=== PATIENT | female | born 1935 | race Caucasian/White ===

== ENCOUNTER 2017-07-16 10:43 | Outpatient (CLI) | payer MEDICARE, OTHER | END 2017-07-16 10:44 | disposition home or self-care (01) | LOC: BICMAMMO 10:43 | PROVIDERS: ATTEND Family Medicine | DX: Z12.31 Encounter for screening mammogram for malignant neoplasm of breast (principal) | CPT/HCPCS: 77063; 77067 ==

== ENCOUNTER 2017-07-16 15:43 | Outpatient (CLI) | payer MEDICARE, OTHER ==
[2017-07-16 16:48] LABS: Hemoglobin 12.9 g/dL (12.0-16.0); Mean Corpuscular HGB CONC 33.1 g/dL (32.0-36.0); Mean Corpuscular Hemoglobin 32.9 pg (27.0-31.0); Mean Corpuscular Volume 99.6 fl (81.0-99.0); Mean Platelet Volume 8.5 fL (7.4-10.4); Platelet Count 165 thou/uL (130-400); RBC Distribution Width 12.4 % (11.5-14.5); Red Blood Cell (RBC) Count 3.91 mill/uL (4.20-5.40); White Blood Cell (WBC) Count 4.7 thou/uL (4.8-10.8)
[2017-07-16 16:57] LABS: Prothrombin Time 13.6 SEC (12.0-14.7)
[2017-07-16 17:11] LABS: Anion Gap 9 mmol/L (10-20); BUN (Urea Nitrogen) 22 mg/dL (9.8-20.1); Calc. Creatinine Clearance 0 mL/min (70-130); Calcium 9.5 mg/dL (7.8-10.44); Carbon Dioxide 29 mmol/L (23-31); Chloride 99 mmol/L (98-107); Estimated GFR-MDRD 77; Glucose 81 mg/dL (83-110); Potassium 4.2 mmol/L (3.5-5.1); Sodium 133 mmol/L (136-145)
== END 2017-07-16 15:44 | disposition home or self-care (01) ==
LOC: LABBT 15:43
PROVIDERS: ATTEND Internal Medicine Cardiovascular Disease
DX: Z01.812 Encounter for preprocedural laboratory examination (principal); I35.8 Other nonrheumatic aortic valve disorders
CPT/HCPCS: 80048; 85027; 85610

== ENCOUNTER → 2017-07-22 | Day surgery (SDC) | payer MEDICARE, OTHER ==
[2017-07-16 15:48] VITALS: BMI 20.3
[~2017-07-22] MED LIST: Lidocaine 2% MPF 10 ML AMP (For Epidural Use) ONE; PROPOFOL 200 MG/20 ML VIAL ONE; PROPOFOL 40 ML ONE
--- NOTE | 2017-07-22 10:00 | ECHO ---
TRANSESOPHAGEAL ECHOCARDIOGRAM: DATE OF SERVICE: 07/22/17 REASON FOR STUDY: Aortic valve endocarditis. SUMMARY: Ms. Howe is a very pleasant 81-year-old white female who comes to the outpatient area for evaluation of aortic valve endocarditis seen on the transthoracic echo. The anesthesiology department provided s edation for the patient. Please see their notes for details. After adequate sedation was achieved, th e transesophageal probe was inserted into the mouth and into the esophagus without issues. Multiplana r views were then obtained. FINDINGS: Left ventricle is normal size with normal systolic function, EF estimated at about 50-55%. Left atrium is mildly dilated with a large left atrial appendage, widely patent. No mass or thrombus. Right atrium is normal size, no mass or thrombus. Right interatrial septum appears to be intact. Right ventricle is normal size with normal systolic function. Aortic valve is mildly sclerotic with three cusps. There is a very small flail mass measuring 0.6 cm on the ventricular side of the aortic valve consistent with the findings on the transthoracic echo. T here is also very mild aortic valve insufficiency, which is opposite to the side where the vegetation is and not related to this, or related to aortic valve sclerosis. This is in between the right and l eft coronary cusp. No evidence of aortic valve stenosis. Mitral valve has mild mitral annular calcification with moderate mitral regurgitation. No stenosis. Tricuspid valve is structurally normal with moderate TR. No stenosis. Pulmonary valve is structurally normal. There is moderate pulmonary insufficiency. There is Grade III/V atherosclerotic disease of the thoracic aorta. IMPRESSION: 1. Normal systolic function, EF of 50-55%. 2. Dilated left atrium. 3. Moderate MR with mitral annular calcification. 4. Moderate TR. 5. Moderate PI. 6. Mild aortic valve insufficiency not related to the small area of vegetations. There is a very sma ll flail mass on the ventricular side of the aortic valve consistent with a healed vegetation Given c linical scenario. Surveillance with transthoracic echo is recommended to make sure that the valve rem ains unharmed.
== END ==
LOC: SDC 06:27
PROVIDERS: ATTEND Internal Medicine Cardiovascular Disease
PROC: B24BZZ4 Ultrasonography of Heart with Aorta, Transesophageal (ICD-10-PCS; principal; 2017-07-22)
DX: I08.1 Rheumatic disorders of both mitral and tricuspid valves (principal); M19.90 Unspecified osteoarthritis, unspecified site; I42.9 Cardiomyopathy, unspecified; I70.0 Atherosclerosis of aorta; I10 Essential (primary) hypertension; E78.5 Hyperlipidemia, unspecified; E03.9 Hypothyroidism, unspecified; Z87.891 Personal history of nicotine dependence; Z91.018 Allergy to other foods; Z91.048 Other nonmedicinal substance allergy status; Z79.82 Long term (current) use of aspirin; Z79.899 Other long term (current) drug therapy
CPT/HCPCS: 93312; J2001; J2704

== ENCOUNTER 2019-08-22 23:24 | Emergency (ER) | payer MEDICARE, OTHER ==
[2019-08-22] MEDS ORDERED: Bacitracin 1 PK ONE (23:53)
--- NOTE | 2019-08-23 00:01 | CT ---
CT OF BRAIN PERFORMED WITHOUT CONTRAST ENHANCEMENT: History: Fell at home hitting right side of head. FINDINGS: There is generalized ventricular and sulcal prominence. There are chronic white matter changes presen t. Right sided scalp injury is noted. No intracerebral hemorrhage or extraaxial fluid collections. No skull fractures identified. Visualized sinuses appear clear. IMPRESSION: No acute intracranial abnormalities. POS: [facility]
[2019-08-23] MEDS ORDERED: Lidocaine 1% w/Epinephrine 1:100K 20 ML VIAL ONE (00:14)
--- NOTE | 2019-08-23 07:51 | RAD ---
Exam: XR Elbow Rt 4 View STANDARD HISTORY: Right elbow pain after a fall COMPARISON: None FINDINGS: . Tiny osseous densities are seen at the elbow joint likely related to mild degenerative changes. Ost eopenia is present. No acute fracture, dislocation, or other acute osseous abnormality is identified. IMPRESSION: No acute osseous abnormality is identified.
== END 2019-08-23 01:11 | disposition home or self-care (01) ==
LOC: ERS 23:24
DX: S06.9X1A Unspecified intracranial injury with loss of consciousness of 30 minutes or less, initial encounter (principal); S51.011A Laceration without foreign body of right elbow, initial encounter; S00.03XA Contusion of scalp, initial encounter; I10 Essential (primary) hypertension; Z79.899 Other long term (current) drug therapy; W01.0XXA Fall on same level from slipping, tripping and stumbling without subsequent striking against object, initial encounter
CPT/HCPCS: 70450

== ENCOUNTER 2019-08-23 12:07 | Observation (INO) | payer MEDICARE, OTHER ==
--- NOTE | 2019-08-23 12:49 | CT ---
Exam: Head CT without contrast HISTORY: Syncope COMPARISON: 08/22/2019 FINDINGS: Hemorrhage: No intraparenchymal hemorrhage or extra-axial hematoma. Brain parenchyma: Cortical joe-white matter differentiation is preserved. No mass effect or midline shift. Basilar cisterns are patent.Stable white matter hypodensities due to chronic small vessel ischemic change. Stable hyperdensity is on the left and right tentorium. Ventricular system: Ventricles and sulci are patent and symmetric. Calvarium: Intact. Sinuses and mastoid air cells: Adequate aeration. IMPRESSION: 1. No intracranial posttraumatic sequelae. 2. No significant interval change.
[2019-08-23 13:19] LABS: #Monocytes 0.9 thou/uL (0.11-0.59); #Neutrophils 5.4 thou/uL (1.40-6.50); %Basophils 0.4 % (0.0-1.0); %Eosinophils 0.4 % (0.0-10.0); %Lymphocytes 14.1 % (21.0-51.0); %Monocytes 12.4 % (0.0-10.0); %Neutrophils 72.8 % (42.0-75.0); Hemoglobin 11.4 g/dL (12.0-16.0); Mean Corpuscular HGB CONC 33.2 g/dL (32.0-36.0); Mean Corpuscular Hemoglobin 31.6 pg (27.0-31.0); Mean Corpuscular Volume 95.3 fL (78.0-98.0); Mean Platelet Volume 9.5 fL (7.4-10.4); Platelet Count 130 thou/uL (130-400); RBC Distribution Width 12.4 % (11.5-14.5); Red Blood Cell (RBC) Count 3.61 mill/uL (4.20-5.40); White Blood Cell (WBC) Count 7.4 thou/uL (4.8-10.8)
--- NOTE | 2019-08-23 13:22 | RAD ---
Exam: One view pelvis HISTORY: Syncope. Fall. Pain. FINDINGS: Limited evaluation of the bony pelvis due to overlying bowel gas and fecal material. Sacral ala cannot be evaluated. Sacroiliac joints are symmetric. Bony pelvis is intact. Symmetric hip joint spaces. Contour of both femoral heads are maintained. Symmetric obturator rings. Mild degenerat rosalinda change in the symphysis pubis. IMPRESSION: No fracture. Technical limitations as described above.
[2019-08-23 13:39] LABS: ALT (SGPT) 13 U/L (8-55); AST (SGOT) 27 U/L (5-34); Albumin 3.8 g/dL (3.4-4.8); Alkaline Phosphatase 31 U/L (40-110); Anion Gap 12 mmol/L (10-20); BUN (Urea Nitrogen) 26 mg/dL (9.8-20.1); Bilirubin, Total 0.6 mg/dL (0.2-1.2); Calc. Creatinine Clearance 0 mL/min (70-130); Calcium 8.5 mg/dL (7.8-10.44); Carbon Dioxide 24 mmol/L (23-31); Chloride 103 mmol/L (98-107); Estimated GFR-MDRD 79; Globulin 2.1 g/dL (2.4-3.5); Glucose 100 mg/dL (83-110); Potassium 4.5 mmol/L (3.5-5.1); Protein, Total 5.9 g/dL (6.0-8.3); Sodium 134 mmol/L (136-145)
[2019-08-23] MEDS ORDERED: Ibuprofen 800 MG TAB ONE (14:55)
[2019-08-23 15:03] LABS: Magnesium 1.9 mg/dL (1.6-2.6)
--- NOTE | 2019-08-23 15:36 | PDOC.EVN ---
Event Note - Event Note Event Note: Patient is refusing IV access
[2019-08-23 17:47] LABS: Troponin I 0.021 ng/mL (< 0.028)
[2019-08-23] MEDS ORDERED: Nitroglycerin 0.4 MG TAB (25 Tab Bottle) PO PRN (17:59)
[2019-08-23] MEDS ORDERED: Senokot S 8.6-50 MG TAB PO PRN (18:01)
[2019-08-23] MEDS ORDERED: Ondansetron PF 4 MG/2 ML Vial IVP PRN (18:01)
[2019-08-23] MEDS ORDERED: Bisacodyl 10 MG SUPP PR PRN (18:01)
[2019-08-23] MEDS ORDERED: Ondansetron ODT 4 MG TAB PO PRN (18:01)
[2019-08-23] MEDS ORDERED: Calcium Carbonate 500 MG ChewTAB PO PRN (18:01)
[2019-08-23] MEDS ORDERED: Melatonin 3 MG TAB PO PRN (18:04)
[2019-08-23] MEDS ORDERED: Sodium Chloride 0.9% 1,000 ML IV SCH (18:15)
[2019-08-23] MEDS ORDERED: Artificial Tears 18 DROP/0.9 ML EA EYE PRN (18:32)
--- NOTE | 2019-08-23 19:18 | HP ---
PRIMARY CARE: Dr. Michele Sandoval. PRIMARY FURNACE CHARGING MACHINE OPERATOR: Dr. Chris. CHIEF COMPLAINT: Syncopal episode. HISTORY OF PRESENT ILLNESS: The patient is an 84-year-old female, with hypertension, presented to the emergency room with above complaints. History obtained from the patient. The patient was seen in the emergency room last night after an episode of fall. She fell in the bathroom, striking the right side of her head. She lost consciousness for 1 to 2 minutes. There was a laceration and a hematoma over the right forehead, which was sutured in the emergency room. A CT brain was negative for intracranial bleed. She was discharged home in a stable condition. The patient returned to the emergency room after a near syncopal episode this morning. This time, she did not hit her head. She is feeling lightheaded and dizzy, especially on standing up. She has been feeling generally weak and fatigued. No chest pain, palpitations, fever, chills, sick contacts, or travel reported. The patient denies any orthopnea or paroxysmal nocturnal dyspnea. In the emergency room, her initial vital signs showed temperature of 98, with respirations of 17, pulse of 72, with a blood pressure of 126/57, O2 saturation 95% on room air. Her troponins were negative. She refused IV access in the emergency room. PAST MEDICAL HISTORY: 1. Hypertension. 2. Hyperlipidemia. 3. Hypothyroidism. PAST SURGICAL HISTORY: 1. Breast implants. 2. Bunion surgery. 3. Bilateral knee replacements. 4. Foot surgery. ALLERGIES: THE PATIENT DENIES ANY DRUG ALLERGIES. CURRENT HOME MEDICATIONS: 1. Aspirin 81 mg daily. 2. Plavix 75 mg at bedtime. 3. Zetia 10 mg at bedtime. 4. Lisinopril 2.5 mg at bedtime. 5. Melatonin as needed. 6. Toprol-XL 25 mg daily. 7. Multivitamin one tablet daily. 8. Niacin 500 mg daily. 9. Zocor 40 mg at bedtime. 10. [place] Thyroid 90 mg daily. 11. Vitamin E 400 units daily. SOCIAL HISTORY: The patient is a former smoker. Denies any current use of alcohol or drug use. Her surrogate decision maker is one of her daughters. She is full code. The patient ambulates with the help of a cane. FAMILY HISTORY: Negative for premature coronary artery disease. REVIEW OF SYSTEMS: All other review of systems was reviewed and was found negative. The patient is complaining of right groin pain that has been ongoing for last 12 hours after the fall. PHYSICAL EXAMINATION: VITAL SIGNS: As discussed above. GENERAL: An 84-year-old female, in no apparent distress. Continues to feel lightheaded and dizzy. HEENT: There is dressing over the right scalp hematoma/laceration. No oral lesion. Pupils were reacting to light. NECK: Supple. No JVD. No carotid bruit. LUNGS: Clear to auscultation bilaterally. No wheezing, rales, or rhonchi. HEART: S1 and S2 present. Regular rate and rhythm. No rubs or gallops. ABDOMEN: Soft, nontender. Bowel sounds present. No rebound or guarding. EXTREMITIES: No edema or calf tenderness. NEUROLOGIC: Grossly nonfocal. Moves all 4 extremities. PSYCHIATRIC: Alert, awake, and oriented x3. SKIN: Warm and dry. LYMPH NODE: No palpable lymph nodes in the neck. PERIPHERAL VASCULAR: Radial pulses palpable bilaterally. MUSCULOSKELETAL: No joint swelling or tenderness. LABORATORY FINDINGS: CBC showed WBC 7.4, with hemoglobin 11.4, hematocrit 34.5, platelets of 130. Chemistry showed sodium 134, potassium 4.5, chloride 103, bicarb 24, BUN 26, creatinine 0.71. Troponin was negative. Magnesium and phosphorus are in normal range. EKG by my review showed sinus rhythm with nonspecific ST-T wave changes in the lateral lead with left axis deviation. Corrected QT interval was 470 milliseconds. Pelvis x-ray was negative for acute fractures or dislocation. CT scan of the brain by my review was negative for infiltrate. IMPRESSION: 1. Generalized weakness with syncope. 2. Fall with scalp hematoma/laceration. 3. Hypertension. 4. Hyperlipidemia. 5. Hyponatremia. 6. Chronic anemia, suspected due to nutritional deficiency. 7. Chronic kidney disease, stage 2. 8. Moderate mitral regurgitation. 9. Abnormal EKG. PLAN: The patient will be monitored on the telemetry unit. Serial troponins will be obtained. We will continue her home medications. We will also start frequent neuro checks. We will obtain echo and carotid Doppler in a.m. Repeat labs including folic acid, vitamin B12, TSH, and cortisol in a.m. Consult Cardiology, Dr. Chris for possible cardiogenic syncope. We will consult Physical Therapy as well. Consult rn case manager hospice for either home health care or inpatient rehab evaluation. Job ID: [id number]
[2019-08-23 19:52] LABS: Troponin I Less than 0.010 ng/mL (< 0.028)
[2019-08-23] MEDS ORDERED: Lisinopril 2.5 MG TAB PO SCH (21:00)
[2019-08-23] MEDS ORDERED: Ezetimibe 10 MG TAB PO SCH (21:00)
[2019-08-23] MEDS ORDERED: Clopidogrel Bisulfate 75 MG TAB PO SCH (21:00)
[2019-08-23] MEDS ORDERED: Atorvastatin Calcium 20 MG TAB PO SCH (21:00)
[2019-08-23] MEDS: cycloSPORINE 0.05% Ophthalmic Droperette EA EYE SCH (21:31)
[2019-08-23] MEDS: Famotidine 20 MG TAB PO SCH (21:31)
[2019-08-23] MEDS: Acetaminophen 325 MG TAB PO PRN (23:27)
[2019-08-24 04:18] LABS: #Eosinphils 0.1 thou/uL (0.0-0.7); #Lymphocytes 1.4 thou/uL (1.20-3.40); #Monocytes 0.7 thou/uL (0.11-0.59); #Neutrophils 3.1 thou/uL (1.40-6.50); %Basophils 0.6 % (0.0-1.0); %Lymphocytes 25.9 % (21.0-51.0); %Monocytes 12.9 % (0.0-10.0); %Neutrophils 58.6 % (42.0-75.0); Hemoglobin 11.4 g/dL (12.0-16.0); Mean Corpuscular HGB CONC 34.3 g/dL (32.0-36.0); Mean Corpuscular Hemoglobin 32.6 pg (27.0-31.0); Mean Corpuscular Volume 95.3 fL (78.0-98.0); Mean Platelet Volume 8.8 fL (7.4-10.4); Platelet Count 123 thou/uL (130-400); RBC Distribution Width 12.4 % (11.5-14.5); Red Blood Cell (RBC) Count 3.49 mill/uL (4.20-5.40); White Blood Cell (WBC) Count 5.3 thou/uL (4.8-10.8)
[2019-08-24 04:35] LABS: Anion Gap 10 mmol/L (10-20); BUN (Urea Nitrogen) 20 mg/dL (9.8-20.1); Calc. Creatinine Clearance 55 mL/min (70-130); Calcium 8.7 mg/dL (7.8-10.44); Carbon Dioxide 26 mmol/L (23-31); Chloride 102 mmol/L (98-107); Estimated GFR-MDRD 81; Glucose 84 mg/dL (83-110); Potassium 4.7 mmol/L (3.5-5.1); Sodium 133 mmol/L (136-145)
[2019-08-24 07:01] LABS: Thyroid Stimulating Hormone 0.8794 uIU/mL (0.35-4.94)
[2019-08-24] MEDS ORDERED: Multivit, Therapeutic 1 TAB PO SCH (09:00)
[2019-08-24] MEDS ORDERED: Aspirin 81 mg Enteric Coated Tablet PO SCH (09:00)
[2019-08-24] MEDS ORDERED: Ascorbic Acid 500 mg Chewable Tablet PO SCH (09:00)
--- NOTE | 2019-08-24 09:05 | ULT ---
CAROTID ULTRASOUND: DATE: 08/24/2019 COMPARISON: CTA neck dated 07/11/2015. HISTORY: Syncope. TECHNIQUE: Multiplanar Jorge scale and color Doppler images were obtained in a carotid ultrasound. Spectral marcella sis of the Doppler waveforms were performed. FINDINGS: A small amount of plaque is seen surrounding both carotid bifurcations, right greater than left. The Doppler waveforms are normal bilaterally. Peak systolic velocity in the right ICA is 120 cm/second. Peak systolic velocity in the right CCA is 111 cm/second. The right ICA/CCA ratio is 1.1. Peak systolic velocity in the left ICA is 170 cm/second. Peak systolic velocity in the left CCA is 11 2 cm/second. The left ICA/CCA ratio is 1.5. Right vertebral artery not seen. Left vertebral artery demonstrates antegrade flow without focal stenosis. IMPRESSION: Moderate stenosis of 50-69% per velocity criteria in the left internal carotid artery. POS: [facility]
[2019-08-24] MEDS: Acetaminophen 325 MG TAB PO PRN (10:18)
[2019-08-24] MEDS: cycloSPORINE 0.05% Ophthalmic Droperette EA EYE SCH (10:18)
[2019-08-24] MEDS: Famotidine 20 MG TAB PO SCH (10:19)
[2019-08-24 12:26] VITALS: BMI 19.3
--- NOTE | 2019-08-24 13:44 | CON ---
DATE OF CONSULTATION: 08/24/2019 REASON FOR CONSULTATION: Syncope. HISTORY OF PRESENT ILLNESS: Ms. Howe is a very pleasant 84-year-old white female, very known to myself, who comes to the hospital for syncopal spell. About 2 to 3 days ago, she tripped and fell. She came to the ER for this. She was evaluated and sent home as all the testing was normal. She was at home yesterday and she stood up, walked to the bathroom, felt lightheaded and then she woke up on the floor. She had hit her head on the way down. She was seen in the ER. CT of the brain was unremarkable. Carotid ultrasound showed moderate disease on the left internal carotid artery. She was still positive. Her blood pressure went from 167 sitting down, to standing up it was 106. She dropped over 40 to 50 points. She was given fluids and Cardiology has been consulted for this. On my evaluation, Ms. Howe tells me that she has been feeling very well recently. She remembers tripping and falling that was not syncope, but the 2nd time was syncope, she felt lightheaded and woke up on the floor. She denies any chest pain, tightness, pressure. No shortness of breath. PAST MEDICAL HISTORY: 1. Hypertension. 2. Hyperlipidemia. 3. Hypothyroidism. 4. Mild aortic insufficiency with healed vegetation on the aortic valve. SURGICAL HISTORY: 1. Breast implants. 2. Bunion surgery. 3. Bilateral knee replacement. 4. Foot surgery. ALLERGIES: NO KNOWN DRUG ALLERGIES. OUTPATIENT MEDICATIONS: 1. Aspirin 81 a day. 2. Plavix 75 mg a day. 3. Zetia 10 mg a day. 4. Lisinopril 2.5 a day. 5. Melatonin p.r.n. 6. Toprol-XL 25 mg a day. 7. Multivitamin daily. 8. Niacin 500 mg a day. 9. Zocor 40 mg a day. 10. [place] Thyroid 90 mg a day. 11. Vitamin E 400 units a day. SOCIAL HISTORY: Former smoker. No alcohol or drugs. FAMILY HISTORY: No early coronary artery disease. REVIEW OF SYSTEMS: A 12-point review of systems was done and was all negative unless stated in the history of present illness. PHYSICAL EXAMINATION: VITAL SIGNS: Temperature 98.3, pulse 59, respiratory rate 13, satting 96% on room air, blood pressure sitting down 169/63, standing up 106/57. GENERAL: Awake, alert, and oriented x3, in no distress. HEENT: Bruising on her right scalp. NECK: Supple. LUNGS: Clear. CARDIOVASCULAR: S1, S2. No S3 or S4. No murmurs. ABDOMEN: Soft. Positive bowel sounds. EXTREMITIES: No edema. SKIN: Warm and dry. LABORATORY DATA: Laboratory work was reviewed. White count of 7, hemoglobin 11, hematocrit of 34, platelet count of a 130. Chemistries were unremarkable except for a sodium of 133. Troponin was negative x3. Folate was normal. B12 was normal. TSH and cortisol were normal. EKG was unremarkable. Echocardiogram was reviewed and showed an EF of 50% to 55%, grade 1 to 3 diastolic dysfunction. There is mild to moderate MR. Aortic valve is sclerotic with mild AI and moderate TR. Mild PI. ASSESSMENT: 1. Syncope. Likely orthostatic in nature. 2. Mild aortic insufficiency. 3. Normal LV function. PLAN: 1. Maintain well hydration. 2. We will stop lisinopril and metoprolol at this time. 3. We will follow up in the office in 2 weeks with blood pressure readings. 4. Should be able to be discharged home later today. Thank you for letting us to participate in the care of your patient. We will sign off. Please call with any questions. Job ID: [id number]
[2019-08-24 17:49] VITALS: BP 129/63; TEMP 97.9
--- NOTE | 2019-08-24 20:01 | DIS ---
DATE OF ADMISSION: 08/23/2019 DATE OF DISCHARGE: 08/24/2019 DISCHARGE DISPOSITION: Home. FOLLOWUP: 1. Follow up with primary care physician, Dr. Michele Sandoval in 1 week. 2. Follow up with Cardiology, Dr. Chris as scheduled. 3. Fall precaution was emphasized. The patient was advised to monitor blood pressure on a daily basis and to maintain a log. DISCHARGE MEDICATIONS: Antihypertensives were discontinued. All other home medications were left unchanged. SIGNIFICANT LABORATORY DATA: Cortisol level was 9.5. Vitamin B12 of 589, folic acid 28. TSH was 0.87. Creatinine was 0.69, sodium 133, BUN on admission was 26, at discharge was 20. Platelets of 123. Repeat CBC and BMP after 1 week are recommended. Primary care physician advised to follow. BRIEF HOSPITAL COURSE: The patient is an 84-year-old female with hypertension, presented to the emergency room after a syncopal episode. She was evaluated in the emergency room on the previous night after an episode of fall causing the scalp hematoma with laceration. Please refer to the history and physical for further details. The patient was admitted to the hospital with generalized weakness with syncope. Her workup was positive for orthostatic hypotension. Antihypertensives were discontinued. Her blood pressure stabilized after discontinuation. An echocardiogram was obtained that showed ejection fraction of 50% to 55% with grade 1 of 3 diastolic dysfunction, mild to moderate mitral regurgitation, moderate tricuspid regurgitation. Carotid Doppler showed moderate 50% to 69% stenosis of the left internal carotid artery. The patient was evaluated by Cardiology, Dr. Chris. The patient was advised to maintain hydration adequately. Lisinopril and metoprolol have been discontinued. She was advised to follow up with Dr. Chris in 2 weeks with blood pressure readings. She will also benefit from a CT angiogram of the neck as an outpatient. Please note that the patient declined IV access this admission. FINAL DIAGNOSES: 1. Generalized weakness with syncope. 2. Fall with scalp hematoma/laceration prior to admission. 3. Hypertension. 4. Hyperlipidemia. 5. Hyponatremia. 6. Moderate mitral regurgitation. 7. Chronic kidney disease, stage 2. 8. Chronic diastolic heart failure. 9. Abnormal EKG. 10. Chronic anemia, suspected due to nutritional deficiency. 11. Moderate stenosis of the left internal carotid artery. 12. Thrombocytopenia. The patient understands the above plan of care. Job ID: [id number]
--- NOTE | 2019-08-25 13:34 | EKG ---
Test Reason : Blood Pressure : / mmHG Vent. Rate : 063 BPM Atrial Rate : 063 BPM P-R Int : 160 ms QRS Dur : 108 ms QT Int : 460 ms P-R-T Axes : 000 -24 079 degrees QTc Int : 470 ms Sinus rhythm with Premature atrial complexes Prolonged QT Abnormal ECG Confirmed by JAVIER MERCADO ([id number]), assistant production editor ROSLYN LERNER ([id number]) on 08/25/2019 1:34:14 PM Referred By: Confirmed By:JAVIER MERCADO
== END 2019-08-24 16:49 | disposition home or self-care (01) ==
LOC: ERS 12:07 → 2NO 17:17
PROVIDERS: ADMIT Internal Medicine; ATTEND Internal Medicine
DX: R55 Syncope and collapse (principal); R53.1 Weakness; I13.0 Hypertensive heart and chronic kidney disease with heart failure and stage 1 through stage 4 chronic kidney disease, or unspecified chronic kidney disease; N18.2 Chronic kidney disease, stage 2 (mild); I50.32 Chronic diastolic (congestive) heart failure; E78.5 Hyperlipidemia, unspecified; E87.1 Hypo-osmolality and hyponatremia; I34.0 Nonrheumatic mitral (valve) insufficiency; R94.31 Abnormal electrocardiogram [ECG] [EKG]; D64.9 Anemia, unspecified; I65.22 Occlusion and stenosis of left carotid artery; D69.6 Thrombocytopenia, unspecified; I35.1 Nonrheumatic aortic (valve) insufficiency; E03.9 Hypothyroidism, unspecified; E78.00 Pure hypercholesterolemia, unspecified; Z87.891 Personal history of nicotine dependence; Z79.02 Long term (current) use of antithrombotics/antiplatelets; Z79.82 Long term (current) use of aspirin; Z79.899 Other long term (current) drug therapy; Z91.018 Allergy to other foods; Z91.048 Other nonmedicinal substance allergy status; Z96.653 Presence of artificial knee joint, bilateral; W01.0XXA Fall on same level from slipping, tripping and stumbling without subsequent striking against object, initial encounter
CPT/HCPCS: 70450 ×2; 72170; 73080; 80048; 80053; 82533; 82607; 82746; 83735; 84100; 84443; 84484 ×2; 85025 ×2; 93005; 93306; 93880; 97116; 97139 ×3; 99285; G0378 ×3; 12011; 36415

== ENCOUNTER 2019-09-21 06:36 | Outpatient (CLI) | payer MEDICARE, OTHER ==
[2019-09-21 12:59] LABS: Hemoglobin 13.7 g/dL (12.0-16.0); Mean Corpuscular HGB CONC 32.1 g/dL (32.0-36.0); Mean Corpuscular Hemoglobin 31.8 pg (27.0-31.0); Mean Platelet Volume 8.8 fL (7.4-10.4); Platelet Count 186 thou/uL (130-400); Red Blood Cell (RBC) Count 4.31 mill/uL (4.20-5.40); White Blood Cell (WBC) Count 6.5 thou/uL (4.8-10.8)
[2019-09-21 13:05] LABS: INR-International Normal Ratio 1.1; PTT 34.9 SEC (22.9-36.1); Prothrombin Time 13.7 SEC (12.0-14.7)
[2019-09-21 13:16] LABS: Anion Gap 13 mmol/L (10-20); BUN (Urea Nitrogen) 24 mg/dL (9.8-20.1); Calc. Creatinine Clearance 0 mL/min (70-130); Calcium 9.4 mg/dL (7.8-10.44); Carbon Dioxide 27 mmol/L (23-31); Chloride 102 mmol/L (98-107); Estimated GFR-MDRD 80; Glucose 96 mg/dL (83-110); Potassium 4.5 mmol/L (3.5-5.1); Sodium 137 mmol/L (136-145)
[2019-09-21 17:22] LABS: SARS-CoV-2 MS2 Positive; SARS-CoV-2 N Gene Negative; SARS-CoV-2 S Gene Negative; SARS-CoV-2 orf1ab Negative
--- NOTE | 2019-09-26 15:56 | EKG ---
Test Reason : Blood Pressure : / mmHG Vent. Rate : 083 BPM Atrial Rate : 326 BPM P-R Int : 000 ms QRS Dur : 120 ms QT Int : 380 ms P-R-T Axes : 000 019 -32 degrees QTc Int : 446 ms Atrial fibrillation with premature ventricular or aberrantly conducted complexes Septal infarct , age undetermined T wave abnormality, consider inferior ischemia or digitalis effect Abnormal ECG When compared with ECG of 23-AUG-2019 12:18, Atrial fibrillation has replaced Sinus rhythm Non-specific change in ST segment in Inferior leads T wave inversion now evident in Inferior leads Confirmed by KETTY PERALTA (2) on 09/26/2019 3:56:06 PM Referred By: JESSE Confirmed By:KETTY PERALTA
== END 2019-09-21 06:37 | disposition home or self-care (01) ==
LOC: LABBT 06:36
PROVIDERS: ATTEND Internal Medicine Cardiovascular Disease
DX: Z01.818 Encounter for other preprocedural examination (principal); Z11.59 Encounter for screening for other viral diseases; Z51.81 Encounter for therapeutic drug level monitoring; I47.2 Ventricular tachycardia; R55 Syncope and collapse; Z79.01 Long term (current) use of anticoagulants
CPT/HCPCS: 80048; 85027; 85610; 85730; 87635; 93005; 93010; U0003

== ENCOUNTER 2019-09-22 06:20 | Inpatient (IN) | payer MEDICARE, OTHER ==
[2019-09-22] MEDS ORDERED: Famotidine/PF 20 mg/2ml Vial ONE (06:57)
[2019-09-22] MEDS ORDERED: Fentanyl 100 MCG/2 ML VIAL ONE (06:57)
[2019-09-22] MEDS ORDERED: Gentamicin 80 MG/2 ML VIAL ONE (08:20)
[2019-09-22] MEDS ORDERED: Iopamidol 370 76% 50 ML VIAL FS ONE (09:00)
[2019-09-22] MEDS ORDERED: PROPOFOL 20 ML ONE (09:22)
[2019-09-22] MEDS ORDERED: Lidocaine 1% PF 5 ML VIAL ONE (09:26)
[2019-09-22] MEDS ORDERED: Ondansetron PF 4 MG/2 ML Vial ONE (09:26)
[2019-09-22] MEDS ORDERED: PROPOFOL 200 MG/20 ML VIAL ONE (09:26)
[2019-09-22] MEDS ORDERED: PHENYLEPHRINE-NS 100 MCG/ML 10 ML SYRINGE ONE (09:26)
[2019-09-22] MEDS ORDERED: EPHEDRINE 25 MG/5 ML SYRINGE ONE (09:26)
[2019-09-22] MEDS ORDERED: Ondansetron HCl/PF 4 MG/2 ML Vial IVP PRN (10:33)
[2019-09-22] MEDS ORDERED: Acetaminophen/Codeine 30-300mg Tablet PO PRN ×2 (12:15)
[2019-09-22] MEDS ORDERED: Sotalol HCl 80 MG TAB PO SCH (12:30)
--- NOTE | 2019-09-22 13:26 | RAD ---
PORTABLE CHEST ONE VIEW: 09/22/19 at 11:59 a.m. HISTORY: AICD pacer placement. FINDINGS/IMPRESSION: The heart size is normal. The aorta is tortuous. A left sided pacemaker device is present with bipola r leads in the right atrium and the right ventricle. Lungs are expanded without lobar consolidation, pneumothoraces, or pleural effusions. POS: [facility]
[2019-09-22] MEDS: CEFAZOLIN 2 GM in Premix Bag 1 BAG IVPB SCH ×2 (15:44→23:14)
[2019-09-22 16:00] VITALS: BMI 19.7
[2019-09-22] MEDS: Acetaminophen 325 MG TAB PO PRN (17:09)
--- NOTE | 2019-09-22 17:54 | OP ---
DATE OF PROCEDURE: 09/22/2019 PROCEDURE PERFORMED: Electrophysiology study. REFERRING PHYSICIAN: Isma Chris MD REASON FOR PROCEDURE: Ms. Howe is an 84-year-old woman, who has history of recurrent syncopal spells and falls. She has underwent an event monitor demonstrating wide-complex tachycardia runs as well as frequent atrial fibrillation, which were sustained up to 3 minutes in duration. She also has mild reduced LVEF about 50% by an echo and by cath as well, minimal plaquing on the coronary arteries by left heart catheterization in August 2019. She is here for EP study. DESCRIPTION OF PROCEDURE: The patient received deep sedation by Anesthesia specialist. After adequate level of sedation achieved, the right femoral venous area was prepped, draped, and anesthetized using subcutaneous lidocaine under ultrasound guidance. The right femoral vein was cannulated x1 and 6-[place] short sheath was introduced. Through this, an octapolar catheter was advanced to the right atrium, right ventricle, His bundle, and CS position. Pacing, mapping, and recording were performed at each location including pacing the left atrium via the CS. Following that, baseline measurements were obtained. Baseline rhythm was sinus rhythm with RR interval 939 milliseconds, LA 211 milliseconds, QRS 120 milliseconds, QT 433 milliseconds, HV interval was 41 milliseconds, AH 155 milliseconds. The sinus node recovery time was repeated, measured at about 946 milliseconds, which was shortened in the baseline tachycardia cycle length. Retrograde VA cycle length was 510 milliseconds. The AV nemesio ERP was 600/420 milliseconds. No dual AV nemesio physiology present. The burst atrial pacing in the atrium induced atrial fibrillation with varying cycle lengths, which eventually required cardioversion. Following that ventricular access to my testing was performed at 600/400 milliseconds. With 600/310/240, we were able to induce ventricular tachycardia with cycle length 230 milliseconds, which was right bundle, left axis in morphology. This ventricular tachycardia was hemodynamically unstable and sustained, therefore cardioversion were performed at 200 joule terminating the arrhythmia. Cardiac silhouette did not change throughout the study. CONCLUSIONS: 1. Inducible Ventricular tachycardia 2. Borderline sinus nemesio function, the resting bradycardia, but normal sinus node recovery time. 3. Adequate AV nemesio function. Normal HV interval. 4. Inducible atrial fibrillation/atypical atrial flutter is noted, sustained. 5. No evidence of accessory pathway or dual AV nemesio physiology present. PLAN: Due to induced ventricular tachycardia and syncopal spells, sustained VT on monitor, proceed with ICD implant. Consider antiarrhythmic agent for suppression of arrhythmia, sotalol versus amiodarone. Job ID: [id number] [facility]
[2019-09-22] MEDS: Sotalol HCl 80 MG TAB PO SCH (21:04)
[2019-09-22] MEDS: Atorvastatin Calcium 20 MG TAB PO SCH (21:04)
[2019-09-22] MEDS: Melatonin 3 MG TAB PO SCH (21:04)
[2019-09-23] MEDS: Cephalexin 250 MG CAP PO SCH ×3 (05:27→23:10)
[2019-09-23] MEDS ORDERED: KRILL OIL 1000 MG PO SCH (09:00)
[2019-09-23] MEDS ORDERED: BIOTIN 1 MG PO SCH (09:00)
[2019-09-23] MEDS ORDERED: CALCIUM MAGNESIUM PO SCH (09:00)
[2019-09-23] MEDS ORDERED: GLUCOSAMINE CHONDROITIN PO SCH (09:00)
[2019-09-23] MEDS: Multivit, Therapeutic 1 TAB PO SCH (09:14)
[2019-09-23] MEDS: Sotalol HCl 80 MG TAB PO SCH ×2 (09:14→21:09)
[2019-09-23] MEDS: Ascorbic Acid 500 mg Chewable Tablet PO SCH (09:14)
[2019-09-23] MEDS: Aspirin 81 mg Enteric Coated Tablet PO SCH (09:14)
[2019-09-23] MEDS: pyridOXINE 50 MG (B6) TAB PO SCH (09:14)
[2019-09-23] MEDS: Ezetimibe 10 MG TAB PO SCH (09:14)
[2019-09-23] MEDS: Stress 600 With Zinc 1 TAB PO SCH (09:19)
[2019-09-23] MEDS: Vitamin E 400 UNITS CAP PO SCH (09:20)
[2019-09-23] MEDS: Acetaminophen 325 MG TAB PO PRN (09:20)
[2019-09-23] MEDS: Ubidecarenone 50 MG CAP PO SCH (09:20)
--- NOTE | 2019-09-23 13:43 | PDOC.EP ---
- Subjective Date: 09/23/19 Time: 08:00 Interval History: This is a follow-up note following electrophysiology study and ICD implant on . Ms. Howe is feeling fatigued today. She reports some pain and bleeding at her ICD implant site. She has not had any repeat syncopal episodes and feels she is tolerating her sotalol without any issues so far. she voices no cardiac concerns or complaints today - Review of Systems Constitutional: reports: weakness. denies: chills, fever, malaise, sweats Respiratory: denies: cough, pleuritic pain, shortness of breath, SOB with excertion, wheezing Cardiology: denies: chest pain, edema, heart racing, light headedness, palpitations, passing out Gastrointestinal: denies: abdominal pain, constipation, nausea, vomitting Musculoskeletal: denies: unstable gait, falls, neck pain - Objective Allergies/Adverse Reactions: Allergies Allergy/AdvReac Type Severity Reaction Status Date / Time cranberry Allergy Verified 09/22/19 15:59 Adhesives Allergy Uncoded 09/21/19 11:30 Current Medications Acetaminophen (Tylenol) 650 mg PO Q4H PRN PRN Reason: Mild Pain (1-3) Last Admin: 09/23/19 09:20 Dose: 650 mg Acetaminophen/Codeine Phosphate (Tylenol #3) 1 tab PO Q4H PRN PRN Reason: Mild Pain (1-3) Acetaminophen/Codeine Phosphate (Tylenol #3) 2 tab PO Q4H PRN PRN Reason: Moderate Pain (4-6) Apixaban (Eliquis) 2.5 mg PO BID [facility] Ascorbic Acid (Vitamin C) 500 mg PO DAILY [facility] Last Admin: 09/23/19 09:14 Dose: 500 mg Aspirin (Ecotrin) 81 mg PO DAILY [facility] Last Admin: 09/23/19 09:14 Dose: 81 mg Atorvastatin Calcium (Lipitor) 20 mg PO HS [facility] Last Admin: 09/22/19 21:04 Dose: 20 mg Cephalexin (Keflex) 500 mg PO Q8HR [facility] Stop: 09/29/19 22:01 Last Admin: 09/23/19 13:08 Dose: 500 mg Coenzyme Q10 (Coenzyme Q10) 300 mg PO DAILY [facility] Last Admin: 09/23/19 09:20 Dose: 300 mg Ezetimibe (Zetia) 10 mg PO DAILY [facility] Last Admin: 09/23/19 09:14 Dose: 10 mg Melatonin (Melatonin) 6 mg PO HS [facility] Last Admin: 09/22/19 21:04 Dose: 6 mg Multivitamins (Theragran) 1 tab PO DAILY [facility] Last Admin: 09/23/19 09:14 Dose: 1 tab Multivitamins/Zinc (Stress 600 With Zinc) 1 tab PO DAILY [facility] Last Admin: 09/23/19 09:19 Dose: 1 tab Pyridoxine HCl (Vitamin B 6) 50 mg PO DAILY [facility] Last Admin: 09/23/19 09:14 Dose: 50 mg Sotalol HCl (Betapace) 120 mg PO BID [facility] Last Admin: 09/23/19 09:14 Dose: 120 mg Thyroid ([place] Thyroid) 90 mg PO DAILY [facility] Last Admin: 09/23/19 09:19 Dose: 90 mg Vitamin E (Vitamin E) 400 units PO DAILY [facility] Last Admin: 09/23/19 09:20 Dose: 400 units Vital Signs & Weight: Vital Signs Temp Pulse Pulse Pulse Resp BP BP 09/23/19 12:07 98.2 F 69 16 09/23/19 11:01 86 73 124/65 135/63 09/23/19 09:14 64 09/23/19 07:39 97.8 F 64 12 09/23/19 02:59 97.4 F L 60 14 BP BP Pulse Ox Pulse Ox Pulse Ox 09/23/19 12:07 120/56 L 97 09/23/19 11:01 96 97 09/23/19 09:14 09/23/19 07:39 122/57 L 97 09/23/19 02:59 115/57 L 92 L Weight 120 lb I/O: I/O 09/22/19 09/23/19 09/24/19 06:59 06:59 06:59 Intake Total 1270 Balance 1270 - Quality Measures Condition: Atrial Fibrillation/Flutter (hx or current) CV meds: Eliquis: Yes ( 2.5 mg b.i.d. to be resumed 09/24/2019) - Physical Exam General: alert & oriented x3, appears well, no apparent distress, speech clear, affect appropriate HEENT: mucus membranes moist, normocephaly, EOMI. negative: jaundice, pallor Neck: supple neck, midline trachea, no lymphadenopathy Cardiology: regular rate and rhythm, no murmur, PMI nondisplaced Lungs: clear to auscultation, normal breath sounds, no wheeze, rales, rhonchi Neurology: cranial nerve 2-12 intact, grossly intact, no lateralizing findings Abdomen: unremarkable, active bowel sounds, no pulsations/bruits Extremities: dry, strong pulses, warm Skin: groin sites stable, device site stable w/o swelling, bruising, drainage ( dried blood noted), left sided device, swelling (mild). negative: erosion, hematoma - Chadsvasc Risk factors Age >75: 2 Female: 1 Risk Score: 3 - EKG Interpretation EKG Method: Telemetry EKG shows: Sinus rhythm - Device Device: biventricular, defibrillator Device Result: Medtronic - Assessment/Plan Assessment/Plan: 1. history of syncope and collapse 2. inducible ventricular tachycardia during electrophysiology study 3. inducible atrial fibrillation during electrophysiology study - resume Eliquis tomorrow morning 4. elevated chads Vasc score indicating need for anticoagulation 5. Dual chamber ICD, Medtronic implanted 09/22/2019 - normal operation by device interrogation this morning - post implant chest x-ray is stable without evidence of pneumothorax - continue post implant Keflex for 1 week - LRL increased to 70 Ms. Shyam is admitted and being watched while being loaded on sotalol to suppress her atrial and ventricular arrhythmias. she does have some dried blood at her ICD implant site but no evidence of acute hematoma or complication. Edges are well approximated and dried bloody drainage is noted. Plan to resume anticoagulation tomorrow morning. Her lower rate limit on her ICD was increased to 70 beats per minute. She is experiencing some QTC prolongation with her sotalol loading. QTC is measuring at 581 milliseconds, baseline was 446msec. Reducing sotalol to 40 mg b.i.d. and continue with 12 lead EKGs 2-3 hours after every dose of sotalol. She will remain on telemetry monitoring for recurrence of the ventricular arrhythmias.
[2019-09-23] MEDS: Atorvastatin Calcium 20 MG TAB PO SCH (21:08)
[2019-09-23] MEDS: Melatonin 3 MG TAB PO SCH (21:09)
[2019-09-24 04:35] LABS: Hemoglobin 13.4 g/dL (12.0-16.0); Platelet Count 139 thou/uL (130-400)
[2019-09-24] MEDS: Cephalexin 250 MG CAP PO SCH ×2 (05:59→15:13)
[2019-09-24] MEDS ORDERED: Apixaban 2.5 MG TAB PO SCH (09:00)
[2019-09-24] MEDS: Ezetimibe 10 MG TAB PO SCH (09:10)
[2019-09-24] MEDS: Ubidecarenone 50 MG CAP PO SCH (09:10)
[2019-09-24] MEDS: Stress 600 With Zinc 1 TAB PO SCH (09:10)
[2019-09-24] MEDS: Acetaminophen 325 MG TAB PO PRN (09:10)
[2019-09-24] MEDS: Aspirin 81 mg Enteric Coated Tablet PO SCH (09:11)
[2019-09-24] MEDS: pyridOXINE 50 MG (B6) TAB PO SCH (09:11)
[2019-09-24] MEDS: Vitamin E 400 UNITS CAP PO SCH (09:11)
[2019-09-24] MEDS: Ascorbic Acid 500 mg Chewable Tablet PO SCH (09:13)
[2019-09-24] MEDS: Multivit, Therapeutic 1 TAB PO SCH (09:13)
[2019-09-24] MEDS: Sotalol HCl 80 MG TAB PO SCH (09:13)
[2019-09-24 15:31] VITALS: TEMP 97.9
[2019-09-24 17:23] VITALS: BP 135/62
--- NOTE | 2019-09-25 00:09 | DIS ---
DATE OF ADMISSION: 09/22/2019 DATE OF DISCHARGE: 09/24/2019 ADMITTING DIAGNOSES: 1. Sustained wide-complex tachycardia. 2. Paroxysmal atrial fibrillation on OAC. 3. Syncopal spells. 4. Cardiomyopathy with reduced LVEF in the 45% to 50% range with nonocclusive plaquing on the coronary angiogram. DISCHARGE DIAGNOSES: 1. Status post EP study demonstrating sustained ventricular tachycardia. 2. Atrial fibrillation, inducible. 3. Prolonged QT with sotalol, which was stopped. 4. S/P 2 Chamber MDT ICD implant 09/22/19 without complication. 5. Orthostatic Hypotension. HOSPITAL COURSE: Mrs. Howe came with elective EP study with findings as noted above. She had easily inducible atrial fibrillation, sustained ventricular tachycardia and hence she underwent a dual-chamber ICD implantation. She was started on sotalol at 120 mg twice a day, progressive QT prolongation noted, which did not resolve by reducing sotalol. Eventually, sotalol was stopped on discharge. She had no proarrhythmia, but QT prolongation in excess of 500 milliseconds. Her ICD function was adequate post implant day and she also healed up adequately. Eliquis 2.5 mg twice a day was resumed 2 days after the implant. No further atrial fibrillation noted during observation. On the day of discharge, orthostatic blood pressures were checked revealing lying blood pressure 126/58, standing blood pressure 86/51. Therefore, midodrine was added to the regimen. The patient will resume her beta-kae therapy. She is advised to be extremely careful with ambulation and return if further syncopal spells occur. Ten days follow up in our clinic. Planned for wound check. She is to take 5 more days of Keflex 500 q.8 hours. Should further atrial fibrillation or ventricular arrhythmias occur, she may still be considered for amiodarone or Multaq therapy. Job ID: [id number] MTDD
--- NOTE | 2019-09-26 16:06 | EKG ---
Test Reason : POST EP/AICD/PACERMA Blood Pressure : / mmHG Vent. Rate : 063 BPM Atrial Rate : 063 BPM P-R Int : 196 ms QRS Dur : 112 ms QT Int : 482 ms P-R-T Axes : 068 -26 035 degrees QTc Int : 493 ms Electronic atrial pacemaker Incomplete left bundle branch block Prolonged QT Abnormal ECG When compared with ECG of 21-SEP-2019 12:18, (Unconfirmed) Electronic atrial pacemaker has replaced Atrial fibrillation QRS axis Shifted left T wave inversion no longer evident in Inferior leads Confirmed by KETTY PERALTA (2) on 09/26/2019 4:05:50 PM Referred By: JESSE Confirmed By:KETTY PERALTA
--- NOTE | 2019-09-26 16:07 | EKG ---
Test Reason : POST MED Blood Pressure : / mmHG Vent. Rate : 060 BPM Atrial Rate : 060 BPM P-R Int : 250 ms QRS Dur : 114 ms QT Int : 482 ms P-R-T Axes : 000 -21 041 degrees QTc Int : 482 ms Electronic atrial pacemaker Incomplete left bundle branch block Borderline ECG When compared with ECG of 22-SEP-2019 11:27, (Unconfirmed) No significant change was found Confirmed by KETTY PERALTA (2) on 09/26/2019 4:07:42 PM Referred By: JESSE Confirmed By:KETTY PERALTA
--- NOTE | 2019-09-26 16:10 | EKG ---
Test Reason : Blood Pressure : / mmHG Vent. Rate : 060 BPM Atrial Rate : 060 BPM P-R Int : 000 ms QRS Dur : 110 ms QT Int : 534 ms P-R-T Axes : 022 -22 -29 degrees QTc Int : 534 ms Atrial-paced rhythm with prolonged AV conduction Nonspecific T wave abnormality Prolonged QT Abnormal ECG When compared with ECG of 22-SEP-2019 14:36, (Unconfirmed) Incomplete left bundle branch block is no longer Present T wave inversion now evident in Inferior leads T wave inversion now evident in Anterior leads QT has lengthened Confirmed by KETTY PERALTA (2) on 09/26/2019 4:10:04 PM Referred By: JESSE Confirmed By:KETTY PERALTA
--- NOTE | 2019-09-26 16:13 | EKG ---
Test Reason : 2HR POST MED Blood Pressure : / mmHG Vent. Rate : 070 BPM Atrial Rate : 070 BPM P-R Int : 000 ms QRS Dur : 118 ms QT Int : 538 ms P-R-T Axes : 063 -22 -80 degrees QTc Int : 581 ms Electronic atrial pacemaker Septal infarct , age undetermined Marked T wave abnormality, consider anterolateral ischemia Prolonged QT Abnormal ECG When compared with ECG of 22-SEP-2019 22:54, (Unconfirmed) Non-specific change in ST segment in Anterior leads T wave inversion more evident in Anterior leads Confirmed by KETTY PERALTA (2) on 09/26/2019 4:13:15 PM Referred By: JESSE Confirmed By:KETTY PERALTA
--- NOTE | 2019-09-26 16:30 | EKG ---
Test Reason : ROUTINE Blood Pressure : / mmHG Vent. Rate : 072 BPM Atrial Rate : 073 BPM P-R Int : 000 ms QRS Dur : 116 ms QT Int : 504 ms P-R-T Axes : 000 -21 -84 degrees QTc Int : 551 ms Electronic atrial pacemaker Incomplete right bundle branch block Septal infarct (cited on or before 23-SEP-2019) T wave abnormality, consider inferior ischemia T wave abnormality, consider anterolateral ischemia Prolonged QT Abnormal ECG When compared with ECG of 23-SEP-2019 10:55, (Unconfirmed) No significant change was found Confirmed by KETTY PERALTA (2) on 09/26/2019 4:30:25 PM Referred By: JESSE Confirmed By:KETTY PERALTA
--- NOTE | 2019-09-26 16:35 | EKG ---
Test Reason : 2 HRS POST MED Blood Pressure : / mmHG Vent. Rate : 071 BPM Atrial Rate : 071 BPM P-R Int : 234 ms QRS Dur : 120 ms QT Int : 508 ms P-R-T Axes : 000 -31 263 degrees QTc Int : 552 ms Electronic atrial pacemaker Left axis deviation Incomplete left bundle branch block Abnormal ECG When compared with ECG of 23-SEP-2019 23:01, (Unconfirmed) Incomplete left bundle branch block has replaced Incomplete right bundle branch block Criteria for Septal infarct are no longer Present Confirmed by KETTY PERALTA (2) on 09/26/2019 4:35:16 PM Referred By: JESSE Confirmed By:KETTY PERALTA
== END 2019-09-24 17:16 | disposition home or self-care (01) | DRG 227 ==
LOC: SDC 06:20 → 2NO 12:10
PROVIDERS: ADMIT Internal Medicine Cardiovascular Disease; ATTEND Internal Medicine Cardiovascular Disease
PROC: 0JH608Z Insertion of Defibrillator Generator into Chest Subcutaneous Tissue and Fascia, Open Approach (ICD-10-PCS; principal; 2019-09-22)
PROC: 02HK3KZ Insertion of Defibrillator Lead into Right Ventricle, Percutaneous Approach (ICD-10-PCS; 2019-09-22)
PROC: 02H63KZ Insertion of Defibrillator Lead into Right Atrium, Percutaneous Approach (ICD-10-PCS; 2019-09-22)
PROC: 4A023FZ Measurement of Cardiac Rhythm, Percutaneous Approach (ICD-10-PCS; 2019-09-22)
PROC: 4A0234Z Measurement of Cardiac Electrical Activity, Percutaneous Approach (ICD-10-PCS; 2019-09-22)
DX: I47.1 Supraventricular tachycardia (principal); I42.9 Cardiomyopathy, unspecified; I10 Essential (primary) hypertension; R78.5 Finding of other psychotropic drug in blood; I25.10 Atherosclerotic heart disease of native coronary artery without angina pectoris; Z20.828 Contact with and (suspected) exposure to other viral communicable diseases; I48.0 Paroxysmal atrial fibrillation; J30.2 Other seasonal allergic rhinitis; M19.90 Unspecified osteoarthritis, unspecified site; R94.31 Abnormal electrocardiogram [ECG] [EKG]; Z96.653 Presence of artificial knee joint, bilateral; E03.9 Hypothyroidism, unspecified; Z87.891 Personal history of nicotine dependence; Z91.018 Allergy to other foods; Z79.890 Hormone replacement therapy; Z79.899 Other long term (current) drug therapy
CPT/HCPCS: 33249; 36005; 71045; 75820; 76942; 80048; 82565; 85014; 85018; 85027; 85049; 85610; 85730; 87635; 92960; 93005; 93010; 93622; 93798; C1721; C1730; C1769; C1777; C1898; J0690; J1580; J1644; J2001; J2405; J2704; J3010; Q9967; S0028; U0003

== ENCOUNTER 2019-09-25 13:29 | Inpatient (IN) | payer MEDICARE, OTHER ==
[2019-09-25 14:08] LABS: #Eosinphils 0.1 thou/uL (0.0-0.7); #Lymphocytes 1.1 thou/uL (1.20-3.40); #Monocytes 0.9 thou/uL (0.11-0.59); #Neutrophils 6.6 thou/uL (1.40-6.50); %Basophils 0.2 % (0.0-1.0); %Eosinophils 0.7 % (0.0-10.0); %Lymphocytes 12.5 % (21.0-51.0); %Monocytes 10.4 % (0.0-10.0); %Neutrophils 76.1 % (42.0-75.0); Hemoglobin 14.1 g/dL (12.0-16.0); Mean Corpuscular HGB CONC 32.7 g/dL (32.0-36.0); Mean Corpuscular Hemoglobin 32.1 pg (27.0-31.0); Mean Corpuscular Volume 98.2 fL (78.0-98.0); Mean Platelet Volume 9.1 fL (7.4-10.4); Platelet Count 121 thou/uL (130-400); RBC Distribution Width 12.8 % (11.5-14.5); White Blood Cell (WBC) Count 8.7 thou/uL (4.8-10.8)
[2019-09-25 14:28] LABS: ALT (SGPT) 12 U/L (8-55); AST (SGOT) 31 U/L (5-34); Albumin 3.9 g/dL (3.4-4.8); Alkaline Phosphatase 51 U/L (40-110); Anion Gap 12 mmol/L (10-20); BUN (Urea Nitrogen) 20 mg/dL (9.8-20.1); Bilirubin, Total 0.6 mg/dL (0.2-1.2); Calc. Creatinine Clearance 0 mL/min (70-130); Calcium 9.1 mg/dL (7.8-10.44); Carbon Dioxide 28 mmol/L (23-31); Chloride 97 mmol/L (98-107); Estimated GFR-MDRD 72; Globulin 2.4 g/dL (2.4-3.5); Glucose 123 mg/dL (83-110); Potassium 4.7 mmol/L (3.5-5.1); Protein, Total 6.3 g/dL (6.0-8.3); Sodium 132 mmol/L (136-145)
--- NOTE | 2019-09-25 14:48 | RAD ---
EXAM: Portable chest PROVIDED CLINICAL HISTORY: Weakness COMPARISON: 09/22/2019 FINDINGS: Cardiac and mediastinal silhouette is within normal limits. Subtle nodular density overlies the right upper lung zone laterally. No lobar consolidation, pleural fluid or pneumothorax evident. Left subclavian cardiac pacing device is redemonstrated in similar position. IMPRESSION: Nodular density right upper lung zone. Correlate with concerns for pneumonia. Radiographic follow-up recommended.
--- NOTE | 2019-09-25 14:49 | RAD ---
EXAM: XR Pelvis AP STANDARD PROVIDED CLINICAL HISTORY: Right hip pain COMPARISON: 08/23/2019 FINDINGS: There is no evidence for fracture or other acute osseous abnormality. Alignment appears anatomic. Maricarmen nt spaces appear preserved. IMPRESSION: No evidence for an acute osseous abnormality. If there is persistent clinical concern, conservative m anagement and follow-up imaging advised.
[2019-09-25 14:51] LABS: CKMB 3.6 ng/mL (0-6.6)
[2019-09-25 17:00] LABS: Bilirubin Negative (Negative); Blood, Urine Negative (Negative); Clarity Clear (Clear); Glucose, Urine (Dipstick) Normal (Negative); Leukocyte Negative Leu/uL (Negative); Nitrite Negative (Negative); Protein, Urine (Dipstick) Negative (Neg-Trace); Urobilinogen Normal mg/dL (Less than 2)
[2019-09-25 17:34] LABS: Troponin I 0.083 ng/mL (< 0.028)
[2019-09-25] MEDS ORDERED: Acetaminophen 325 MG TAB PO PRN (17:58)
[2019-09-25] MEDS ORDERED: Ondansetron ODT 4 MG TAB PO PRN (17:58)
[2019-09-25] MEDS ORDERED: Ondansetron PF 4 MG/2 ML Vial IVP PRN (17:58)
[2019-09-25] MEDS: Sodium Chloride 0.9% 1,000 ML IV SCH (19:00)
[2019-09-25 19:18] VITALS: BMI 19.0
[2019-09-25 20:20] LABS: Troponin I 0.083 ng/mL (< 0.028)
[2019-09-25] MEDS ORDERED: Ezetimibe 10 MG TAB PO SCH (21:00)
[2019-09-25] MEDS ORDERED: Atorvastatin Calcium 20 MG TAB PO SCH (21:00)
[2019-09-25] MEDS: Famotidine 20 MG TAB PO SCH (21:12)
[2019-09-25] MEDS: Apixaban 2.5 MG TAB PO SCH (21:12)
[2019-09-25] MEDS: cycloSPORINE 0.05% Ophthalmic Droperette EA EYE SCH (21:12)
--- NOTE | 2019-09-25 21:37 | HP ---
PRIMARY CARE PHYSICIAN: Dr. Michele Sandoval. SENIOR TECHNOLOGIST: Dr. Chris. CHIEF COMPLAINT: "Feeling like I am going to pass out or going to fade away." HISTORY OF PRESENT ILLNESS: Ms. Howe is a very pleasant 84-year-old female, who has a history of multifocal atrial tachycardia as well as atrial fibrillation. She recently underwent a pacer defibrillator placed due to some wide-complex tachycardia as well. She was discharged yesterday and says that she was feeling fine when she left the hospital and then later that evening, she ate some pizza and ice cream as well as a pretzel. She says that she woke up at around 4 o'clock in the morning and normally she will ring a ayon when she gets up and then she says that before she got up, she felt like she was going to pass out or what she says she describes as fading away. She says she went back to sleep and woke up a little bit later that afternoon and still had that same sensation. She does admit that she has not drank much fluid in the past. She drank a protein drink and then also had about 8 ounces of water. She does admit to some nausea, but no chest pain, and as a result of her symptoms, she came to the ER for evaluation. In the ER, they did interrogate her pacemaker and found that she was having episodes of multifocal atrial tachycardia at around 4:00 a.m. when this happened and also later on in the afternoon. However, the heart rates were not very fast, anywhere from 70 to about 110 and she is being placed in observation for further evaluation. REVIEW OF SYSTEMS: All systems were reviewed and are negative except for that mentioned in the history of present illness. PAST MEDICAL HISTORY: Significant for orthostatic hypotension, hyperlipidemia, hypothyroidism, atrial tachycardia, and wide-complex tachycardia. PAST SURGICAL HISTORY: She had a cyst removed from her breast, bunion surgery, bilateral knee replacements, and foot surgery. She has had a pacer defibrillator placed. ALLERGIES: SHE SAYS SHE HAS AN INTOLERANCE TO HOSPITAL TAPE. SOCIAL HISTORY: She lives with family. She is a nonsmoker and nondrinker. CODE STATUS: Full code. FAMILY HISTORY: Significant for coronary artery disease. CURRENT MEDICATIONS: Include metoprolol-XL, [place] Thyroid 90 mg daily, Zocor 40 mg daily, Zetia 10 mg daily, and Eliquis 2.5 mg twice a day. PHYSICAL EXAMINATION: GENERAL: She is alert and oriented. She appears to be in no acute distress. She is well developed and well nourished. VITAL SIGNS: Blood pressure was 115/59, heart rate 90, respiratory rate of 20, temperature is 97.7, and O2 saturation is 98% on room air. HEENT: Pupils are equal, round, and reactive. Extraocular muscles are intact. Her sclerae are anicteric. Throat, no erythema, no exudates. NECK: No adenopathy. No bruits. LUNGS: Clear to auscultation. There is no wheezing, no rales, no rhonchi. CARDIOVASCULAR: She has a normal S1, S2. There is no S3 or S4, but she does have a grade 2/6 systolic murmur at the lower left sternal border. ABDOMEN: Soft, nontender, and nondistended. Positive for bowel sounds. No rebound. No guarding. EXTREMITIES: She has 1 to 2+ pitting edema as well as some chronic venous stasis changes. No joint effusions. NEUROLOGIC: The exam is grossly nonfocal. SKIN AND INTEGUMENT: Other than some bruising on the lower extremities as well as around her eyes and her face, there are no skin changes. LABORATORY RESULTS: White blood cell count is 8.7, hemoglobin 14.1, hematocrit is 43.2, and platelet count is 121. Sodium 132, potassium 4.7, chloride is 97, CO2 is 28, BUN of 20, creatinine 0.7, glucose is 123, and urinalysis is still pending. On her EKG, she had diffuse T-wave inversions in leads I, II, III as well as aVL and aVF and leads V1 through V6, this is by my reading. ASSESSMENT: 1. This is a pleasant 84-year-old female, who presents to the emergency room complaining of presyncope. It is unclear the etiology, although I suspect it could be related to orthostasis and volume depletion. However, she does have new T-wave inversions, the etiology of which is unclear. She will be monitored in the hospital. We will continue to trend her troponins and place her on gentle IV hydration. Check her orthostatic vital signs and consult EP for further recommendations. 2. Hypothyroidism. We will check her thyroid function tests including TSH and free T4. Continue [place] Thyroid. 3. We will continue her anticoagulation with Eliquis. Job ID: [id number]
[2019-09-26 05:03] LABS: Anion Gap 12 mmol/L (10-20); BUN (Urea Nitrogen) 14 mg/dL (9.8-20.1); Calc. Creatinine Clearance 61 mL/min (70-130); Calcium 8.4 mg/dL (7.8-10.44); Carbon Dioxide 26 mmol/L (23-31); Chloride 101 mmol/L (98-107); Estimated GFR-MDRD 89; Glucose 74 mg/dL (83-110); Potassium 4.1 mmol/L (3.5-5.1); Sodium 135 mmol/L (136-145)
[2019-09-26 05:17] LABS: Thyroid Stimulating Hormone 1.4437 uIU/mL (0.35-4.94)
[2019-09-26 05:24] LABS: Free T4 (Free Thyroxine) 0.78 ng/dL (0.70-1.48)
[2019-09-26 05:55] LABS: Band 1 % (5-11); Eosinophils 3 % (0-10); Hemoglobin 12.2 g/dL (12.0-16.0); Lymphocytes 36 % (21-51); MDiff Complete? YES; Mean Corpuscular HGB CONC 31.6 g/dL (32.0-36.0); Mean Platelet Volume 9.2 fL (7.4-10.4); Monocytes 19 % (0-10); Neutrophil 41 % (42-75); Platelet Count 106 thou/uL (130-400); Platelet Morphology Comment Appears Decreased; RBC Distribution Width 12.8 % (11.5-14.5); Red Blood Cell (RBC) Count 3.95 mill/uL (4.20-5.40); White Blood Cell (WBC) Count 5.4 thou/uL (4.8-10.8)
[2019-09-26] MEDS: Sodium Chloride 0.9% 1,000 ML IV SCH ×2 (06:53→23:05)
[2019-09-26] MEDS: Famotidine 20 MG TAB PO SCH ×2 (08:43→21:23)
[2019-09-26] MEDS: Apixaban 2.5 MG TAB PO SCH (08:44)
--- NOTE | 2019-09-26 09:22 | PDOC.HOSPP ---
- Subjective Encounter Date: 09/26/19 Encounter Time: : Subjective: Ms. Howe was seen today in follow-up of pre-syncope. She says she feels better today. No new complaints. She got up to go the the bathroom this AM, and did not have an episode like yesterday. - Objective Vital Signs & Weight: Vital Signs (12 hours) Temp Pulse Resp BP BP BP Pulse Ox 09/26/19 08:36 97.8 F 71 14 136/63 105/59 L 133/74 98 09/26/19 04:03 97.9 F 131/68 111/67 128/58 L Weight Weight 125 lb 6.4 oz I&O: 09/25/19 09/26/19 09/27/19 06:59 06:59 06:59 Intake Total 1080 Output Total 1100 Balance -20 Result Diagrams: 09/26/19 04:12 09/26/19 04:12 Hospitalist ROS - Medication Medications: Active Medications Generic Name Dose Route Start Last Admin Trade Name Yoanthan PRN Reason Stop Dose Admin Apixaban 2.5 mg 09/25/19 21:00 09/26/19 08:44 Eliquis PO 2.5 mg BID SAIDA Administration Atorvastatin Calcium 20 mg 09/25/19 21:00 09/25/19 21:12 Lipitor PO 20 mg HS SAIDA Administration Cyclosporine 0 ml 09/25/19 21:00 09/25/19 21:12 Restasis EA EYE 2 ml BID SAIDA Administration Ezetimibe 10 mg 09/25/19 21:00 09/25/19 21:12 Zetia PO 10 mg HS SAIDA Administration Famotidine 20 mg 09/25/19 21:00 09/26/19 08:43 Pepcid PO 20 mg BID SAIDA Administration Sodium Chloride 1,000 mls @ 70 mls/hr 09/25/19 17:58 09/26/19 06:53 Normal Saline 0.9% IV 1,000 mls .[id number] SAIDA Administration Sodium Chloride 10 ml 09/26/19 09:00 09/26/19 08:44 Flush - Normal Saline IVF 10 ml Q12HR SAIDA Administration Thyroid 90 mg 09/26/19 06:00 09/26/19 06:05 [place] Thyroid PO 90 mg 0600 SAIDA Administration - Exam Eye: PERRL, anicteric sclera Heart: RRR, no rubs, normal peripheral pulses, murmur present, II/IV Respiratory: CTAB, no wheezes Gastrointestinal: soft, non-tender, non-distended, normal bowel sounds, no palpable masses, no hepatomegaly Extremities: no cyanosis, no edema Hosp A/P (1) Pre-syncope Status: Acute (2) Atrial fibrillation Code(s): I48.91 - UNSPECIFIED ATRIAL FIBRILLATION Status: Acute (3) Orthostatic hypotension Code(s): I95.1 - ORTHOSTATIC HYPOTENSION Status: Acute - Plan * Pre-syncope- discussed with Dr. Barron. Her symptoms coincide with when she developed Atrial fibrillation. It may be that she does not tolerate AFIB well. It is his opinion that the T- wave inversions are in relation the the V- pacing * Awaiting Echo results * Orthostatic hypotension- this does not appear to be symptomatic * Deconditioning- Ms. Howe is disappointed in her condition. She says she had been walking everyday up until the beginning of August. She says that she feels herself getting weaker and weaker, and is concerned about this. She would like to have " all of this fixed" so that she can return to her previous level of functioning * Thyroid function is normal
[2019-09-26] MEDS: cycloSPORINE 0.05% Ophthalmic Droperette EA EYE SCH (09:27)
[2019-09-26] MEDS ORDERED: cycloSPORINE 0.05% Ophthalmic Droperette EA EYE PRN (18:07)
[2019-09-26] MEDS: SIMVASTATIN 40 MG PO SCH (21:24)
[2019-09-26] MEDS: EZETIMIBE 10 MG PO SCH (21:27)
[2019-09-26] MEDS: ELIQUIS 2.5 MG PO SCH (21:28)
[2019-09-26] MEDS: CEPHALEXIN 500 MG PO SCH (23:03)
[2019-09-27] MEDS: CEPHALEXIN 500 MG PO SCH ×3 (05:37→21:09)
[2019-09-27] MEDS: ELIQUIS 2.5 MG PO SCH ×2 (08:10→21:11)
[2019-09-27] MEDS: ASPIRIN ENTERIC COATED 81 MG PO SCH (08:10)
[2019-09-27] MEDS: Famotidine 20 MG TAB PO SCH ×2 (08:10→21:08)
[2019-09-27] MEDS: THYROID PO SCH (08:10)
--- NOTE | 2019-09-27 11:07 | PDOC.HOSPP ---
- Subjective Encounter Date: 09/27/19 Encounter Time: 11:06 Subjective: Ms. Howe was seen today in follow-up of rial fibrillation and pre-syncope. She notes feeling weak. No new complaints. - Objective Vital Signs & Weight: Vital Signs (12 hours) Temp Pulse Resp BP BP BP BP 09/27/19 07:13 112/59 L 93/58 L 101/55 L 09/27/19 07:12 98.1 F 68 16 101/55 L 09/27/19 03:56 141/70 H 124/63 163/68 H 09/27/19 03:49 97.6 F 85 16 163/68 H Pulse Ox 09/27/19 07:13 09/27/19 07:12 95 09/27/19 03:56 09/27/19 03:49 97 Weight Weight 120 lb 11.2 oz I&O: 09/26/19 09/27/19 09/28/19 06:59 06:59 06:59 Intake Total 1080 2550 Output Total 1100 1100 Balance -20 1450 Result Diagrams: 09/26/19 04:12 09/26/19 04:12 Hospitalist ROS - Medication Medications: Active Medications Generic Name Dose Route Start Last Admin Trade Name Yonathan PRN Reason Stop Dose Admin Acetaminophen 650 mg 09/25/19 17:58 09/26/19 12:18 Tylenol PO 650 mg Q4H PRN Administration Headache/Fever/Mild Pain (1-3) Famotidine 20 mg 09/25/19 21:00 09/27/19 08:10 Pepcid PO Not Given BID SAIDA Sodium Chloride 1,000 mls @ 70 mls/hr 09/25/19 17:58 09/26/19 23:05 Normal Saline 0.9% IV 1,000 mls .[id number] SAIDA Administration Simvastatin 40 Mg 1 each 09/26/19 21:00 09/26/19 21:24 PO 1 each HS SAIDA Administration Eliquis 2.5 Mg 1 each 09/26/19 21:00 09/27/19 08:10 PO 1 each BID SAIDA Administration Cephalexin 500 Mg 1 each 09/26/19 22:00 09/27/19 05:37 PO 1 each Q8HR SAIDA Administration Ezetimibe 10 Mg 1 each 09/26/19 21:00 09/26/19 21:27 PO 1 each HS SAIDA Administration [place] Thyroid 1 1/2 1 each 09/27/19 09:00 09/27/19 08:10 Grain (90 Mg) PO 1 each DAILY SAIDA Administration Aspirin Enteric 1 each 09/27/19 09:00 09/27/19 08:10 Coated 81 Mg PO 1 each DAILY SAIDA Administration Metoprolol Succinate 25 each 09/27/19 09:00 09/27/19 08:11 Xl 25 Mg Tab PO 25 each DAILY SAIDA Administration Sodium Chloride 10 ml 09/26/19 09:00 09/27/19 08:11 Flush - Normal Saline IVF 10 ml Q12HR SAIDA Administration - Exam Eye: PERRL Heart: RRR, no murmur, no gallops, no rubs, normal peripheral pulses Respiratory: CTAB, no wheezes, no rales, no ronchi, normal chest expansion Gastrointestinal: soft, non-tender, non-distended, normal bowel sounds, no palpable masses Extremities: no cyanosis, no edema Hosp A/P (1) Pre-syncope Status: Acute (2) Atrial fibrillation Code(s): I48.91 - UNSPECIFIED ATRIAL FIBRILLATION Status: Acute (3) Orthostatic hypotension Code(s): I95.1 - ORTHOSTATIC HYPOTENSION Status: Acute - Plan * Pre-syncope- related to AFIB * Orthostatic hypotension- this does not appear to be symptomatic. Will discontinue IV fluids * Deconditioning- plan for Rehab transfer
--- NOTE | 2019-09-27 11:13 | PDOC.EP ---
- Subjective Date: 09/26/19 Time: 16:00 Interval History: Ms. Howe was discharged on Friday after undergoing EPS and dual chamber ICD implant on Friday. She was inducible for VT and AFib was seen as welll. Sotalol loading was attempted, but eventually stopped due to QT/QTc prolongation even on 40mg BID. Plan was for washout and start Multaq at a later date. She returned to the hospital for episodes of weakness and near syncope. Her ICD was interrogated which showed AF episodes correlating with her onset of symptoms. - Review of Systems Constitutional: denies: chills, fever, malaise, sweats, weakness Respiratory: denies: cough, pleuritic pain, shortness of breath, wheezing Cardiology: denies: chest pain, heart racing, light headedness, palpitations, passing out Gastrointestinal: denies: abdominal pain, constipation, diarrhea Musculoskeletal: denies: unstable gait, falls, neck pain - Objective Allergies/Adverse Reactions: Allergies Allergy/AdvReac Type Severity Reaction Status Date / Time cranberry Allergy Verified 09/22/19 15:59 Adhesives Allergy Uncoded 09/21/19 11:30 Current Medications Acetaminophen (Tylenol) 650 mg PO Q4H PRN PRN Reason: Headache/Fever/Mild Pain (1-3) Last Admin: 09/26/19 12:18 Dose: 650 mg Cyclosporine (Restasis) 0 ml EA EYE BIDPRN PRN PRN Reason: Dry Eyes Famotidine (Pepcid) 20 mg PO BID [facility] Last Admin: 09/27/19 08:10 Dose: Not Given Sodium Chloride (Normal Saline 0.9%) 1,000 mls @ 70 mls/hr IV .[id number] [facility] Last Admin: 09/26/19 23:05 Dose: 1,000 mls Ondansetron HCl (Zofran Odt) 4 mg PO Q6H PRN PRN Reason: Nausea/Vomiting Ondansetron HCl (Zofran) 4 mg IVP Q6H PRN PRN Reason: Nausea/Vomiting Simvastatin 40 Mg 1 each PO HS [facility] Last Admin: 09/26/19 21:24 Dose: 1 each Eliquis 2.5 Mg 1 each PO BID [facility] Last Admin: 09/27/19 08:10 Dose: 1 each Cephalexin 500 Mg 1 each PO Q8HR [facility] Last Admin: 09/27/19 05:37 Dose: 1 each Ezetimibe 10 Mg 1 each PO HS [facility] Last Admin: 09/26/19 21:27 Dose: 1 each [place] Thyroid 1 1/2 (Grain (90 Mg)) 1 each PO DAILY [facility] Last Admin: 09/27/19 08:10 Dose: 1 each Aspirin Enteric (Coated 81 Mg) 1 each PO DAILY [facility] Last Admin: 09/27/19 08:10 Dose: 1 each Metoprolol Succinate (Xl 25 Mg Tab) 25 each PO DAILY [facility] Last Admin: 09/27/19 08:11 Dose: 25 each Sodium Chloride (Flush - Normal Saline) 10 ml IVF Q12HR [facility] Last Admin: 09/27/19 08:11 Dose: 10 ml Sodium Chloride (Flush - Normal Saline) 10 ml IVF PRN PRN PRN Reason: Saline Flush Vital Signs & Weight: Vital Signs Temp Pulse Resp BP BP BP BP 09/27/19 07:13 112/59 L 93/58 L 101/55 L 09/27/19 07:12 98.1 F 68 16 101/55 L 09/27/19 03:56 141/70 H 124/63 163/68 H 09/27/19 03:49 97.6 F 85 16 163/68 H Pulse Ox 09/27/19 07:13 09/27/19 07:12 95 09/27/19 03:56 09/27/19 03:49 97 Weight 120 lb 11.2 oz I/O: I/O 09/26/19 09/27/19 09/28/19 06:59 06:59 06:59 Intake Total 1080 2550 Output Total 1100 1100 Balance -20 1450 - Quality Measures Condition: Atrial Fibrillation/Flutter (hx or current) CV meds: Eliquis: Yes (2.5 for age and weight) - Physical Exam General: alert & oriented x3, appears well, no apparent distress, speech clear, affect appropriate HEENT: mucus membranes moist, normocephaly Neck: supple neck, midline trachea, no lymphadenopathy Cardiology: regular rate and rhythm, no murmur, PMI nondisplaced Lungs: clear to auscultation, normal breath sounds, no wheeze, rales, rhonchi Neurology: cranial nerve 2-12 intact, grossly intact, no lateralizing findings Abdomen: unremarkable, active bowel sounds, no pulsations/bruits Extremities: dry, strong pulses, warm Skin: groin sites stable, device site stable w/o swelling - Chadsvasc Risk factors Age >75: 2 Female: 1 Risk Score: 3 - Labs Result Diagrams: 09/26/19 04:12 09/26/19 04:12 - EKG Interpretation EKG Method: Telemetry EKG shows: Sinus rhythm (AP VS) - Device Device: dual, defibrillator Device Result: [employer] - Assessment/Plan Assessment/Plan: 1. Atrial fibrillation, paroxysmal 2. orthostatic hypotension, recently started on midodrine 3. Near syncope associated with recurrent atrial fibrillation with controlled ventricular rates 4. recent electrophysiology study inducible for ventricular tachycardia 5. dual-chamber ICD - [employer] - date of implant 09/22/2019 - interrogation shows normal operation. - AF burden approximately 15-20%, largely controlled ventricular rates during AF episodes. - MVP mode --> some RV pacing is seen during AF episodes 6. anticoagulation with Eliquis 2.5 mg b.i.d. - reduced dose for advanced age and low weight 7. weakness and deconditioning Ms. Cornelius was discharged on Friday and unfortunately we see symptomatic recurrence of atrial fibrillation. She was unable to tolerate sotalol due to QTC prolongation. My plan was to allow for the sotalol to washout and then start either flecainide or Multaq. Multaq may not be ideal as she seems quite sensitive to the QT prolongation effect of medications. I will check a 12 lead EKG in the morning before choosing an antiarrhythmic medication.
[2019-09-27] MEDS ORDERED: Flecainide 50 MG TAB PO SCH (11:27)
--- NOTE | 2019-09-27 12:59 | PDOC.EP ---
- Subjective Date: 09/27/19 Time: 12:56 Interval History: Ms. Howe is feeling weak today. She did not get good rest last night. Otherwise she voices no complaints. - Review of Systems Constitutional: denies: chills, fever, malaise, sweats, weakness Respiratory: denies: cough, pleuritic pain, shortness of breath, wheezing Cardiology: denies: chest pain, edema, heart racing, light headedness, paroxysmal noc. dyspnea, palpitations, passing out Gastrointestinal: denies: abdominal pain, constipation Musculoskeletal: denies: unstable gait, falls, neck pain - Objective Allergies/Adverse Reactions: Allergies Allergy/AdvReac Type Severity Reaction Status Date / Time cranberry Allergy Verified 09/22/19 15:59 Adhesives Allergy Uncoded 09/21/19 11:30 Current Medications Acetaminophen (Tylenol) 650 mg PO Q4H PRN PRN Reason: Headache/Fever/Mild Pain (1-3) Last Admin: 09/26/19 12:18 Dose: 650 mg Cyclosporine (Restasis) 0 ml EA EYE BIDPRN PRN PRN Reason: Dry Eyes Famotidine (Pepcid) 20 mg PO BID [facility] Last Admin: 09/27/19 08:10 Dose: Not Given Flecainide Acetate (Tambocor) 100 mg PO Q12HR [facility] Flecainide Acetate (Tambocor) 100 mg PO NOW [facility] Stop: 09/27/19 13:00 Last Admin: 09/27/19 11:54 Dose: 100 mg Ondansetron HCl (Zofran Odt) 4 mg PO Q6H PRN PRN Reason: Nausea/Vomiting Ondansetron HCl (Zofran) 4 mg IVP Q6H PRN PRN Reason: Nausea/Vomiting Simvastatin 40 Mg 1 each PO HS [facility] Last Admin: 09/26/19 21:24 Dose: 1 each Eliquis 2.5 Mg 1 each PO BID [facility] Last Admin: 09/27/19 08:10 Dose: 1 each Cephalexin 500 Mg 1 each PO Q8HR [facility] Last Admin: 09/27/19 05:37 Dose: 1 each Ezetimibe 10 Mg 1 each PO HS [facility] Last Admin: 09/26/19 21:27 Dose: 1 each [place] Thyroid 1 1/2 (Grain (90 Mg)) 1 each PO DAILY [facility] Last Admin: 09/27/19 08:10 Dose: 1 each Aspirin Enteric (Coated 81 Mg) 1 each PO DAILY [facility] Last Admin: 09/27/19 08:10 Dose: 1 each Metoprolol Succinate (Xl 25 Mg Tab) 25 each PO DAILY [facility] Last Admin: 09/27/19 08:11 Dose: 25 each Sodium Chloride (Flush - Normal Saline) 10 ml IVF Q12HR [facility] Last Admin: 09/27/19 08:11 Dose: 10 ml Sodium Chloride (Flush - Normal Saline) 10 ml IVF PRN PRN PRN Reason: Saline Flush Vital Signs & Weight: Vital Signs Temp Pulse Resp BP BP BP BP 09/27/19 11:55 98.1 F 69 18 137/72 09/27/19 07:13 112/59 L 93/58 L 101/55 L 09/27/19 07:12 98.1 F 68 16 101/55 L 09/27/19 03:56 141/70 H 124/63 163/68 H 09/27/19 03:49 97.6 F 85 16 163/68 H Pulse Ox 09/27/19 11:55 97 09/27/19 07:13 09/27/19 07:12 95 09/27/19 03:56 09/27/19 03:49 97 Weight 120 lb 11.2 oz I/O: I/O 09/26/19 09/27/19 09/28/19 06:59 06:59 06:59 Intake Total 1080 2550 Output Total 1100 1100 Balance -20 1450 - Quality Measures Condition: Atrial Fibrillation/Flutter (hx or current) CV meds: Eliquis: Yes (2.5 for age and weight) - Physical Exam General: alert & oriented x3, appears well, no apparent distress, speech clear, affect appropriate HEENT: mucus membranes moist, normocephaly, EOMI. negative: oral lesions Neck: supple neck, midline trachea, no JVD/HJR, no lymphadenopathy Cardiology: regular rate and rhythm, no murmur, PMI nondisplaced Lungs: clear to auscultation, normal breath sounds, no wheeze, rales, rhonchi Neurology: cranial nerve 2-12 intact, grossly intact, no lateralizing findings Abdomen: unremarkable, active bowel sounds, no pulsations/bruits Extremities: dry, strong pulses, warm Skin: groin sites stable, device site stable w/o swelling, bruising, left sided device. negative: drainage, hematoma, swelling - Labs Result Diagrams: 09/26/19 04:12 09/26/19 04:12 - EKG Interpretation EKG Method: Telemetry EKG shows: Sinus rhythm - Device Device: dual, defibrillator Device Result: [employer] - Assessment/Plan Assessment/Plan: 1. Atrial fibrillation, paroxysmal 2. orthostatic hypotension, recently started on midodrine 3. Near syncope associated with recurrent atrial fibrillation with controlled ventricular rates 4. recent electrophysiology study inducible for ventricular tachycardia 5. dual-chamber ICD - [employer] - date of implant 09/22/2019 - interrogation shows normal operation. - AF burden approximately 15-20%, largely controlled ventricular rates during AF episodes. - MVP mode --> some RV pacing is seen during AF episodes 6. anticoagulation with Eliquis 2.5 mg b.i.d. - reduced dose for advanced age and low weight 7. weakness and deconditioning 8. Recovered ejection fraction - EF55-60% by echo 09/26/19 Her echocardiogram reveals an ejection fraction of 55-60% now. QTC was 468 milliseconds on 12 lead EKG today with a QRS of 120 milliseconds. Due to her tendency for QT prolongation and normalized ejection fraction I will start flecainide 100 mg p.o. b.i.d. and continue her metoprolol for its rate- controlling properties if her blood pressure allows this. encouraged her to remain hydrated has dehydration may have also been a contributing factor to this I would prefer for medication control of her arrhythmia issues although she may require a PVAI in the future due to the severity of her symptoms even with rate controlled episodes. I would like her to remain overnight and check a 12 lead EKG in the morning. I anticipate she will be ready for discharge tomorrow. She is scheduled for close follow-up with our office for a wound and device check next week. I have had [employer] interrogate her device, enable ATP therapies and also extend the AV delay to minimize her RV pacing.
--- NOTE | 2019-09-27 16:09 | EKG ---
Test Reason : TIMED Blood Pressure : / mmHG Vent. Rate : 070 BPM Atrial Rate : 070 BPM P-R Int : 184 ms QRS Dur : 120 ms QT Int : 434 ms P-R-T Axes : 114 -24 -77 degrees QTc Int : 468 ms Electronic atrial pacemaker Abnormal ECG When compared with ECG of 25-SEP-2019 13:46, (Unconfirmed) Electronic atrial pacemaker has replaced Atrial fibrillation Incomplete left bundle branch block has replaced Non-specific intra-ventricular conduction delay Nonspecific T wave abnormality has replaced inverted T waves in Inferior leads QT has shortened Confirmed by AICHA WATTERS, SCyril ([id number]) on 09/27/2019 4:09:19 PM Referred By: [facility] Confirmed By:DR. Dolores HOLCOMB MD
[2019-09-27] MEDS: Flecainide 50 MG TAB PO SCH (21:11)
[2019-09-27] MEDS: EZETIMIBE 10 MG PO SCH (21:12)
[2019-09-27] MEDS: SIMVASTATIN 40 MG PO SCH (21:13)
[2019-09-28 04:21] LABS: Platelet Count 103 thou/uL (130-400)
[2019-09-28] MEDS: CEPHALEXIN 500 MG PO SCH (06:15)
[2019-09-28] MEDS: THYROID PO SCH (07:58)
[2019-09-28] MEDS: ASPIRIN ENTERIC COATED 81 MG PO SCH (07:59)
[2019-09-28] MEDS: ELIQUIS 2.5 MG PO SCH (07:59)
[2019-09-28] MEDS: Flecainide 50 MG TAB PO SCH (08:00)
[2019-09-28] MEDS: Famotidine 20 MG TAB PO SCH (08:02)
--- NOTE | 2019-09-28 09:26 | PDOC.EP ---
- Subjective Date: 09/28/19 Time: 09:23 Interval History: Mrs. Howe is feeling much better after getting a good night's rest. She continues to feel weak and is expecting to go to rehab today. - Review of Systems Constitutional: reports: weakness. denies: chills, fever, malaise, sweats Cardiology: denies: chest pain, edema, heart racing, light headedness, passing out Gastrointestinal: denies: abdominal pain, constipation, diarrhea, vomitting Musculoskeletal: denies: unstable gait, falls, neck pain, leg pain, foot pain - Objective Allergies/Adverse Reactions: Allergies Allergy/AdvReac Type Severity Reaction Status Date / Time cranberry Allergy Verified 09/22/19 15:59 Adhesives Allergy Uncoded 09/21/19 11:30 Current Medications Acetaminophen (Tylenol) 650 mg PO Q4H PRN PRN Reason: Headache/Fever/Mild Pain (1-3) Last Admin: 09/26/19 12:18 Dose: 650 mg Cyclosporine (Restasis) 0 ml EA EYE BIDPRN PRN PRN Reason: Dry Eyes Famotidine (Pepcid) 20 mg PO BID [facility] Last Admin: 09/28/19 08:02 Dose: Not Given Flecainide Acetate (Tambocor) 100 mg PO Q12HR [facility] Last Admin: 09/28/19 08:00 Dose: 100 mg Ondansetron HCl (Zofran Odt) 4 mg PO Q6H PRN PRN Reason: Nausea/Vomiting Ondansetron HCl (Zofran) 4 mg IVP Q6H PRN PRN Reason: Nausea/Vomiting Simvastatin 40 Mg 1 each PO HS [facility] Last Admin: 09/27/19 21:13 Dose: 1 each Eliquis 2.5 Mg 1 each PO BID [facility] Last Admin: 09/28/19 07:59 Dose: 1 each Cephalexin 500 Mg 1 each PO Q8HR [facility] Last Admin: 09/28/19 06:15 Dose: 1 each Ezetimibe 10 Mg 1 each PO HS [facility] Last Admin: 09/27/19 21:12 Dose: 1 each [place] Thyroid 1 1/2 (Grain (90 Mg)) 1 each PO DAILY [facility] Last Admin: 09/28/19 07:58 Dose: 1 each Aspirin Enteric (Coated 81 Mg) 1 each PO DAILY [facility] Last Admin: 09/28/19 07:59 Dose: 1 each Metoprolol Succinate (Xl 25 Mg Tab) 25 each PO DAILY [facility] Last Admin: 09/28/19 07:57 Dose: 25 each Sodium Chloride (Flush - Normal Saline) 10 ml IVF Q12HR [facility] Last Admin: 09/28/19 08:02 Dose: 10 ml Sodium Chloride (Flush - Normal Saline) 10 ml IVF PRN PRN PRN Reason: Saline Flush Vital Signs & Weight: Vital Signs Temp Pulse Resp BP BP Pulse Ox 09/28/19 06:50 97.6 F 70 16 119/56 L 96 09/28/19 03:44 97.2 F L 70 16 129/69 96 Weight 120 lb 11.2 oz I/O: I/O 09/27/19 09/28/19 09/29/19 06:59 06:59 06:59 Intake Total 2550 240 Output Total 1100 Balance 1450 240 - Quality Measures Condition: Atrial Fibrillation/Flutter (hx or current) CV meds: Eliquis: Yes (2.5 for age and weight) - Physical Exam General: alert & oriented x3, appears well, no apparent distress, speech clear, affect appropriate HEENT: mucus membranes moist, normocephaly Neck: supple neck, midline trachea, no JVD/HJR, no masses, no bruit, no lymphadenopathy, no thromegaly Cardiology: regular rate and rhythm, no murmur, regular rate, regular rhythm, PMI nondisplaced Lungs: clear to auscultation, normal breath sounds, no wheeze, rales, rhonchi Neurology: cranial nerve 2-12 intact, grossly intact, no lateralizing findings - Labs Result Diagrams: 09/28/19 03:59 09/28/19 03:59 - EKG Interpretation EKG Method: Telemetry EKG shows: Sinus rhythm - Assessment/Plan Assessment/Plan: 1. Atrial fibrillation, paroxysmal 2. orthostatic hypotension, recently started on midodrine 3. Near syncope associated with recurrent atrial fibrillation with controlled ventricular rates 4. recent electrophysiology study inducible for ventricular tachycardia 5. dual-chamber ICD - [employer] - date of implant 09/22/2019 - interrogation shows normal operation. - AF burden approximately 15-20%, largely controlled ventricular rates during AF episodes. - MVP mode --> some RV pacing is seen during AF episodes 6. anticoagulation with Eliquis 2.5 mg b.i.d. - reduced dose for advanced age and low weight 7. weakness and deconditioning 8. Recovered ejection fraction - EF55-60% by echo 09/26/19 Her echocardiogram reveals an ejection fraction of 55-60% now. QTC was 468 milliseconds on 12 lead EKG 09/27/19 with a QRS of 120 milliseconds. Due to her tendency for QT prolongation and normalized ejection fraction I started flecainide 100 mg p.o. b.i.d. and continued her metoprolol for its rate- controlling properties if her blood pressure allows this. I prefer medical management for her arrhythmia although she may require a PVAI in the future due to the severity of her symptoms even with rate controlled episodes. Her 12 lead EKG is pending this morning and I expect she will be okay to discharge after it is completed. I will review it once it is available. Her rhythm has been stable on the front desk monitor with no breakthrough episodes of a fib. I will see her back next week for a wound check and device follow-up.
[2019-09-28 11:33] VITALS: BP 130/67; TEMP 98.2
--- NOTE | 2019-09-28 11:51 | PDOC.HOSPP ---
- Subjective Encounter Date: 09/28/19 Encounter Time: 11:48 Subjective: Ms. Howe was seen today in follow-up of Atrial fibrillation and pre-syncope. She had a nose bleed last night, and had this a few times last week. She attributes this to the Eliquis. Otherwise no complaints. - Objective Vital Signs & Weight: Vital Signs (12 hours) Temp Pulse Resp BP BP BP Pulse Ox 09/28/19 11:33 98.2 F 70 18 130/67 99 09/28/19 06:50 97.6 F 70 16 119/56 L 96 09/28/19 03:44 97.2 F L 70 16 129/69 96 Weight Weight 120 lb 11.2 oz I&O: 09/27/19 09/28/19 09/29/19 06:59 06:59 06:59 Intake Total 2550 240 Output Total 1100 Balance 1450 240 Result Diagrams: 09/28/19 03:59 09/28/19 03:59 Hospitalist ROS - Medication Medications: Active Medications Generic Name Dose Route Start Last Admin Trade Name Yonathan PRN Reason Stop Dose Admin Acetaminophen 650 mg 09/25/19 17:58 09/26/19 12:18 Tylenol PO 650 mg Q4H PRN Administration Headache/Fever/Mild Pain (1-3) Famotidine 20 mg 09/25/19 21:00 09/28/19 08:02 Pepcid PO Not Given BID [facility] Flecainide Acetate 100 mg 09/27/19 21:00 09/28/19 08:00 Tambocor PO 100 mg Q12HR [facility] Administration Simvastatin 40 Mg 1 each 09/26/19 21:00 09/27/19 21:13 PO 1 each HS [facility] Administration Eliquis 2.5 Mg 1 each 09/26/19 21:00 09/28/19 07:59 PO 1 each BID [facility] Administration Cephalexin 500 Mg 1 each 09/26/19 22:00 09/28/19 06:15 PO 1 each Q8HR [facility] Administration Ezetimibe 10 Mg 1 each 09/26/19 21:00 09/27/19 21:12 PO 1 each HS [facility] Administration [place] Thyroid 1 1/2 1 each 09/27/19 09:00 09/28/19 07:58 Grain (90 Mg) PO 1 each DAILY [facility] Administration Aspirin Enteric 1 each 09/27/19 09:00 09/28/19 07:59 Coated 81 Mg PO 1 each DAILY [facility] Administration Metoprolol Succinate 25 each 09/27/19 09:00 09/28/19 07:57 Xl 25 Mg Tab PO 25 each DAILY [facility] Administration Sodium Chloride 10 ml 09/26/19 09:00 09/28/19 08:02 Flush - Normal Saline IVF 10 ml Q12HR [facility] Administration - Exam Eye: PERRL Heart: RRR, no murmur, no gallops, no rubs, normal peripheral pulses Respiratory: CTAB, no wheezes, no rales, no ronchi, normal chest expansion Gastrointestinal: soft, non-tender, non-distended, normal bowel sounds, no palpable masses, no hepatomegaly Extremities: no cyanosis, no edema Hosp A/P (1) Pre-syncope Status: Acute (2) Atrial fibrillation Code(s): I48.91 - UNSPECIFIED ATRIAL FIBRILLATION Status: Acute (3) Orthostatic hypotension Code(s): I95.1 - ORTHOSTATIC HYPOTENSION Status: Acute - Plan * Pre-syncope- related to AFIB * AFIB- she has been started on Flecanide * Orthostatic hypotension-continue Midodrine * Deconditioning- plan for Rehab transfer once cleared by Cardiology
--- NOTE | 2019-09-28 13:25 | DIS ---
DATE OF ADMISSION: 09/25/2019 DATE OF DISCHARGE: 09/28/2019 DISCHARGE DISPOSITION: To inpatient rehab. DISCHARGE DIAGNOSES: 1. Atrial fibrillation. 2. Presyncope secondary to atrial fibrillation. 3. Orthostatic hypotension. 4. Hypothyroidism. 5. Deconditioning. DISCHARGE MEDICATIONS: Include; 1. Flecainide 100 mg p.o. twice a day. 2. Metoprolol succinate XL 25 mg daily. 3. Midodrine 2.5 mg t.i.d. 4. Tylenol 650 mg q.4 hours as needed. 5. Vitamin E 400 units daily. 6. Vitamin B complex once daily. 7. CoQ10 of 300 mg daily. 8. [place] Thyroid 90 mg daily. 9. Simvastatin 40 mg at bedtime. 10. Restasis drops twice daily. 11. Pyridoxine 50 mg daily. 12. Niacin 500 mg daily. 13. Multivitamin once daily. 14. Melatonin 5 mg at bedtime as needed. 15. Krill oil one tablet daily. 16. Glucosamine chondroitin daily. CODE STATUS: Full code. ALLERGIES: TO CRANBERRY AND ADHESIVES. PROCEDURE IN THE HOSPITAL: Imaging done during the hospital stay, the patient had an echocardiogram. The ejection fraction was estimated at 55% to 60%. There was some moderate mitral regurgitation present. Structurally normal aortic valve. No evidence of any aortic stenosis or pericardial effusion. HOSPITAL COURSE: Ms. Howe is a very pleasant 84-year-old female, who recently had an AICD placed due to a wide-complex tachycardia. She had been discharged home and then the following morning, she started having presyncopal symptoms of feeling dizzy, like she was "going to fade away." She came to the ER for evaluation. Her defibrillator was interrogated and it was found that during her symptomatic phases, she was found to have atrial fibrillation with a normal ventricular response. Her agriculture scientist was consulted and it is felt that the patient's symptoms were likely the result of the atrial fibrillation and the attempt will be to try to chemically convert her into sinus. She was taken off sotalol due to prolonged QT interval and placed on flecainide during this hospital stay, and due to the severe deconditioning, she is being transferred to the inpatient rehab facility for further physical therapy. Job ID: [id number]
--- NOTE | 2019-09-28 20:22 | EKG ---
Test Reason : POST TIKOSYN Blood Pressure : / mmHG Vent. Rate : 070 BPM Atrial Rate : 070 BPM P-R Int : 142 ms QRS Dur : 152 ms QT Int : 452 ms P-R-T Axes : 013 -17 023 degrees QTc Int : 488 ms Electronic atrial pacemaker Left bundle branch block Abnormal ECG When compared with ECG of 27-SEP-2019 09:03, Left bundle branch block has replaced Incomplete left bundle branch block Confirmed by AICHA WATTERS, SCyril ([id number]) on 09/28/2019 8:21:59 PM Referred By: [facility] Confirmed By:DR. Dolores HOLCOMB MD
--- NOTE | 2019-10-02 12:58 | EKG ---
Test Reason : Blood Pressure : / mmHG Vent. Rate : 083 BPM Atrial Rate : 288 BPM P-R Int : 000 ms QRS Dur : 124 ms QT Int : 444 ms P-R-T Axes : 000 -20 243 degrees QTc Int : 521 ms Demand pacemaker; interpretation is based on intrinsic rhythm Atrial fibrillation with premature ventricular or aberrantly conducted complexes Non-specific intra-ventricular conduction delay Abnormal ECG New T wave inversion compared to 08/23/2019 Confirmed by ZANA HARRIS DO ([id number]), digital editor KWABENA BERGERON ([id number]) on 10/02/2019 12:57:53 PM Referred By: Confirmed By:ZANA HARRIS DO
== END 2019-09-28 14:05 | DRG 310 ==
LOC: ERS 13:29 → 2NO 16:23 → OBSVTOIN 16:23
PROVIDERS: ADMIT Internal Medicine; ATTEND Internal Medicine
PROC: 4B02XTZ Measurement of Cardiac Defibrillator, External Approach (ICD-10-PCS; principal; 2019-09-25)
DX: I48.0 Paroxysmal atrial fibrillation (principal); I47.2 Ventricular tachycardia; I95.1 Orthostatic hypotension; E03.9 Hypothyroidism, unspecified; R94.31 Abnormal electrocardiogram [ECG] [EKG]; R53.81 Other malaise; E78.5 Hyperlipidemia, unspecified; E78.00 Pure hypercholesterolemia, unspecified; I10 Essential (primary) hypertension; I34.0 Nonrheumatic mitral (valve) insufficiency; Z96.653 Presence of artificial knee joint, bilateral; Z91.018 Allergy to other foods; Z91.048 Other nonmedicinal substance allergy status; Z95.810 Presence of automatic (implantable) cardiac defibrillator; Z87.891 Personal history of nicotine dependence; Z79.01 Long term (current) use of anticoagulants; Z79.899 Other long term (current) drug therapy
CPT/HCPCS: 36415; 71045; 72170; 80048; 80053; 81003; 82553; 82565; 84439; 84443; 84484; 85014; 85018; 85025; 85049; 93005; 93010; 93306

== ENCOUNTER 2019-10-07 18:47 | Emergency (ER) | payer MEDICARE, OTHER ==
[2019-10-07 19:32] LABS: #Lymphocytes 1.2 thou/uL (1.20-3.40); #Monocytes 1.3 thou/uL (0.11-0.59); #Neutrophils 6.6 thou/uL (1.40-6.50); %Basophils 0.2 % (0.0-1.0); %Eosinophils 0.3 % (0.0-10.0); %Lymphocytes 12.9 % (21.0-51.0); %Monocytes 14.6 % (0.0-10.0); %Neutrophils 71.9 % (42.0-75.0); Hemoglobin 12.8 g/dL (12.0-16.0); Mean Corpuscular HGB CONC 33.2 g/dL (32.0-36.0); Mean Corpuscular Hemoglobin 32.5 pg (27.0-31.0); Mean Corpuscular Volume 97.8 fL (78.0-98.0); Mean Platelet Volume 8.8 fL (7.4-10.4); Platelet Count 144 thou/uL (130-400); RBC Distribution Width 12.4 % (11.5-14.5); Red Blood Cell (RBC) Count 3.95 mill/uL (4.20-5.40); White Blood Cell (WBC) Count 9.2 thou/uL (4.8-10.8)
[2019-10-07 19:50] LABS: ALT (SGPT) 15 U/L (8-55); AST (SGOT) 26 U/L (5-34); Albumin 3.8 g/dL (3.4-4.8); Alkaline Phosphatase 50 U/L (40-110); Anion Gap 14 mmol/L (10-20); BUN (Urea Nitrogen) 15 mg/dL (9.8-20.1); Bilirubin, Total 0.8 mg/dL (0.2-1.2); Calc. Creatinine Clearance 0 mL/min (70-130); Calcium 8.8 mg/dL (7.8-10.44); Carbon Dioxide 28 mmol/L (23-31); Chloride 92 mmol/L (98-107); Estimated GFR-MDRD 83; Globulin 2.7 g/dL (2.4-3.5); Glucose 119 mg/dL (83-110); Potassium 4.7 mmol/L (3.5-5.1); Protein, Total 6.5 g/dL (6.0-8.3); Sodium 129 mmol/L (136-145)
[2019-10-07] MEDS ORDERED: Acetaminophen 500 MG TAB ONE (20:20)
[2019-10-07] MEDS ORDERED: Ondansetron PF 4 MG/2 ML Vial ONE (20:20)
[2019-10-07] MEDS ORDERED: Ondansetron ODT 4 MG TAB ONE (20:23)
--- NOTE | 2019-10-07 20:58 | CT ---
Exam: Head CT without contrast HISTORY: Fall. Post traumatic pain. COMPARISON: 08/23/2019 FINDINGS: Hemorrhage: No intraparenchymal hemorrhage or extra-axial hematoma. Brain parenchyma: Cortical joe-white matter differentiation is preserved. No mass effect or midline shift. Basilar cisterns are patent.Stable white matter hypodensities due to chronic small vessel ischemic change. Ventricular system: Ventricles and sulci are patent and symmetric. Calvarium: Posterior scalp hematoma. Intact calvarium. Sinuses and mastoid air cells: Adequate aeration. Stable metallic density projecting anterior to the right lobe. IMPRESSION: No intracranial posttraumatic sequelae.
--- NOTE | 2019-10-07 21:01 | CT ---
Exam: CT cervical spine without contrast HISTORY: Trauma. Pain. COMPARISON: None FINDINGS: No craniocervical dissociation. Appropriate alignment of the lateral masses of C1 and C2. Intact odon toid process Appropriate alignment of the facets. There is slight reversal of cervical lordosis. Grade 1 anterolis thesis of C2 upon C3 and C3 upon C4 is likely due to degenerative change. Severe loss of disc space height at C4-C5, C5-C6 and C6-C7. When comparing a CT angiogram of the neck 07/11/2015, overall degene rative changes are stable. Soft tissue neck structures: No mass, lymphadenopathy or hematoma. No prevertebral soft tissue swelli ng. Upper mediastinum and lung apices: Chronic changes in the lung apices. Central spinal canal: Varying degrees of central canal stenosis and foraminal narrowing due to degene rative change. Technique limits evaluation. At least moderate central canal stenosis at C4-C5, C5-C6 and C6-C7. Vertebral bodies: Cervical spine vertebral body height is maintained. No fracture. IMPRESSION: No fracture.
== END 2019-10-07 21:59 | disposition home or self-care (01) ==
LOC: ERS 18:47
DX: S01.01XA Laceration without foreign body of scalp, initial encounter (principal); E78.5 Hyperlipidemia, unspecified; E78.00 Pure hypercholesterolemia, unspecified; I10 Essential (primary) hypertension; I48.91 Unspecified atrial fibrillation; Z87.891 Personal history of nicotine dependence; Z79.899 Other long term (current) drug therapy; W01.198A Fall on same level from slipping, tripping and stumbling with subsequent striking against other object, initial encounter
CPT/HCPCS: 36415; 70450; 72125; 85025; 93005; J2405; Q0162

== ENCOUNTER 2020-06-24 17:26 | Observation (INO) | payer MEDICARE, OTHER ==
[2020-06-24] MEDS ORDERED: Ondansetron PF 4 MG/2 ML Vial ONE (18:00)
[2020-06-24] MEDS ORDERED: Meclizine HCl 25 MG TAB ONE (18:00)
[2020-06-24] MEDS ORDERED: Lorazepam 2 MG/ML VIAL ONE (18:00)
[2020-06-24 18:12] LABS: #Lymphocytes 0.8 thou/uL (1.20-3.40); #Monocytes 0.6 thou/uL (0.11-0.59); %Basophils 0.3 % (0.0-1.0); %Eosinophils 0.3 % (0.0-10.0); %Lymphocytes 10.5 % (21.0-51.0); %Monocytes 7.5 % (0.0-10.0); %Neutrophils 81.4 % (42.0-75.0); Hemoglobin 14.6 g/dL (12.0-16.0); Mean Corpuscular HGB CONC 33.4 g/dL (32.0-36.0); Mean Corpuscular Hemoglobin 33.4 pg (27.0-31.0); Mean Platelet Volume 9.2 fL (7.4-10.4); Platelet Count 117 thou/uL (130-400); RBC Distribution Width 12.3 % (11.5-14.5); Red Blood Cell (RBC) Count 4.37 mill/uL (4.20-5.40); White Blood Cell (WBC) Count 7.4 thou/uL (4.8-10.8)
[2020-06-24 18:31] LABS: ALT (SGPT) 17 U/L (8-55); AST (SGOT) 27 U/L (5-34); Albumin 3.9 g/dL (3.4-4.8); Alkaline Phosphatase 44 U/L (40-110); Anion Gap 14 mmol/L (10-20); BUN (Urea Nitrogen) 19 mg/dL (9.8-20.1); Bilirubin, Total 0.5 mg/dL (0.2-1.2); Calc. Creatinine Clearance 0 mL/min (70-130); Calcium 8.6 mg/dL (7.8-10.44); Carbon Dioxide 26 mmol/L (23-31); Chloride 101 mmol/L (98-107); Globulin 2.9 g/dL (2.4-3.5); Glucose 111 mg/dL (83-110); Magnesium 1.8 mg/dL (1.6-2.6); Potassium 4.9 mmol/L (3.5-5.1); Protein, Total 6.8 g/dL (5.8-8.1); Sodium 136 mmol/L (136-145)
--- NOTE | 2020-06-24 18:48 | CT ---
CT OF THE BRAIN WITHOUT CONTRAST: 06/24/20 INDICATIONS: 84-year-old female with vertigo and altered mental status. Dizziness, nausea and vomiting since this morning. COMPARISON: Prior exam dated 10/07/19. FINDINGS: There is moderate chronic small vessel ischemic change. There is small remote lacunar infarcts involv ing the caudate heads as well as the right globus pallidus. Septum pellucidum and third ventricle are midline. Mastoid air cells and paranasal sinuses are clear. There is metallic density in the region of the anterior right globe. The paranasal sinuses are clear. IMPRESSION: 1. No acute intracranial abnormality. 2. Stable chronic ischemic changes as above. 3. Stable metallic density within the anterior right globe. POS: BH
[2020-06-24 20:13] LABS: Bilirubin Negative (Negative); Blood, Urine Negative (Negative); Clarity Turbid (Clear); Glucose, Urine (Dipstick) Normal (Negative); Ketone, Urine Trace mg/dL (Negative); Leukocyte Negative Leu/uL (Negative); Nitrite Negative (Negative); Protein, Urine (Dipstick) Negative (Neg-Trace); Specific Gravity, Urine 1.017 (1.002-1.036); Urobilinogen Normal mg/dL (Less than 2); pH, Urine 7.5 (5.0-9.0)
--- NOTE | 2020-06-24 21:38 | PDOC.HHP ---
Hospitalist HPI vertigo and dizziness History of Present Illness: 84 yr old female with Chronic atrial fib with recurrent v-tach , on chronic anticoagulation with Eliquis and s/p AICD placed 8 months , follows with Dr Solorio, previously on sotalol but unable to tolerate and s/p flecanide use but held since ast 1 week due to recurrent low BP , developed vertigo on waking up this am , symptoms was associated with dizziness, nausea and worse with standing with relief on lying . she was noted in bed by daughter and reported side to side head movt aggravated symptoms . symptoms continue to persistent until arrival in ER . She report one episode of vomiting prior to meds given . She denies any symptoms now. No palpitations reported , no recent diarrhea but she describe intermittent muscle cramps since last 3 days . on Telemetry monitoring , noted with intermittent couplets beats .Symptoms somewhat improved now post IVF/meclizine /zofran and Ativan but patient still having unsteady gait Head CT was negative for acute infarct . she is being admitted for possible posterior infarct Allergies/Adverse Reactions: Allergy/AdvReac Type Severity Reaction Status Date / Time cranberry Allergy Verified 09/22/19 15:59 Adhesives Allergy Uncoded 09/21/19 11:30 Home Medications: Medication Instructions Recorded Confirmed Type Ezetimibe [Zetia] 1 tab PO HS 11/09/14 09/25/19 History Glucosam/Chondr-Msm1/D3/C/Jarocho 2 tab PO DAILY 11/09/14 09/25/19 History [Glucosamine Chondroitin Complex] Restasis [Restasis Ophth Drops] 2 drop EA EYE BID 11/09/14 09/25/19 History Simvastatin [Zocor] 40 mg PO HS 11/09/14 09/25/19 History Ascorbic Acid [Vitamin C] 500 mg PO DAILY 01/24/15 09/25/19 History Multivitamin [Multivitamins] 1 cap PO DAILY 01/24/15 09/25/19 History Vitamin E 1 tab PO DAILY 01/24/15 09/25/19 History Aspirin [Ecotrin Low Strength] 81 mg PO DAILY 07/16/17 09/25/19 History Melatonin 5 mg PO HS PRN 08/23/19 09/25/19 History Niacin [Niacor] 1 tab PO DAILY 08/23/19 09/25/19 History Thyroid,Pork [[place] Thyroid] 1 tab PO QAM 08/23/19 09/25/19 History Apixaban [Eliquis] 2.5 mg PO BID 09/21/19 09/25/19 History Biotin 1 mg PO DAILY 09/21/19 09/25/19 History Calcium Carb,Gluc/Mag Ox,Gluc 1 tablet PO DAILY 09/21/19 09/25/19 History [Calcium Magnesium Caplet] Krill/Om3/DHA/EPA/Om6/Lip/Astx 1 cap PO DAILY 09/21/19 09/25/19 History [Krill Oil 1,000 mg Softgel] Ubidecarenone [Co Q-10] 300 mg PO DAILY 09/21/19 09/25/19 History Vitamin B Complex 1 cap PO DAILY 09/21/19 09/25/19 History pyridOXINE [Vitamin B 6] 50 mg PO DAILY 09/21/19 09/25/19 History Acetaminophen [Tylenol Regular 650 mg PO Q4H PRN tab 09/24/19 09/25/19 Rx Strength] Cephalexin [Keflex] 500 mg PO Q8HR #15 cap 09/24/19 09/25/19 Rx Metoprolol Succinate [Toprol XL] 25 mg PO DAILY #30 tab 09/24/19 09/25/19 Rx Midodrine HCl 2.5 mg PO TID PRN #45 tablet 09/24/19 09/25/19 Rx Flecainide [Tambocor] 100 mg PO Q12HR #0 tab 09/28/19 Rx Past History: PMHx: PSHx: FHx: Social: Hospitalist HPI ROS Constitutional: reports: weakness, malaise Eyes: denies: pain, vision change, conjunctivae inflammation, eyelid inflamm ation, redness, other ENT: denies: ear pain, ear discharge, nose pain, nose discharge, nose congestion, mouth pain, mouth swelling, throat pain, throat swelling, other Respiratory: denies: cough, dry, shortness of breath, hemoptysis, SOB with excertion, pleuritic pain, sputum, wheezing, other Cardiovascular: denies: chest pain, palpitations, orthopnea, paroxysmal noc. dyspnea, edema, light headedness, other Gastrointestinal: reports: nausea, vomiting Genitourinary: denies: dysuria, frequency, incontinence, hematuria, retention, other Musculoskeletal: denies: neck pain, shoulder pain, arm pain, back pain, hand pain, leg pain, foot pain, other Skin: denies: rash, lesions, fantasma, bruising, other Neurological: reports: weakness Hospitalist Exam General Appearance: NAD, awake alert General - other findings: thin built female , Eye: PERRL, anicteric sclera ENT: no oropharyngeal lesions Neck: supple, symmetric, no JVD Heart: RRR, no murmur Heart - other findings: AICD insitu Respiratory: CTAB, no wheezes Gastrointestinal: soft, non-tender, non-distended, no rigidity Extremities: no cyanosis, no clubbing Skin: normal turgor, no lesions Neurological: cranial nerve grossly intact, normal sensation to touch, no focal deficits, no new deficit Musculoskeletal: normal tone, normal strength Hospitalist Results Result Diagrams: 06/24/20 18:00 06/24/20 18:00 Lab results: Laboratory Last Values WBC 7.4 thou/uL (4.8-10.8) 06/24/20 18:00 RBC 4.37 mill/uL (4.20-5.40) 06/24/20 18:00 Hgb 14.6 g/dL (12.0-16.0) 06/24/20 18:00 Hct 43.7 % (36.0-47.0) 06/24/20 18:00 MCV 100.0 fL (78.0-98.0) H 06/24/20 18:00 MCH 33.4 pg (27.0-31.0) H 06/24/20 18:00 MCHC 33.4 g/dL (32.0-36.0) 06/24/20 18:00 RDW 12.3 % (11.5-14.5) 06/24/20 18:00 Plt Count 117 thou/uL (130-400) L 06/24/20 18:00 MPV 9.2 fL (7.4-10.4) 06/24/20 18:00 Neutrophils % 81.4 % (42.0-75.0) H 06/24/20 18:00 Lymphocytes % 10.5 % (21.0-51.0) L 06/24/20 18:00 Monocytes % 7.5 % (0.0-10.0) 06/24/20 18:00 Eosinophils % 0.3 % (0.0-10.0) 06/24/20 18:00 Basophils % 0.3 % (0.0-1.0) 06/24/20 18:00 Neutrophils # 6.0 thou/uL (1.40-6.50) 06/24/20 18:00 Lymphocytes # 0.8 thou/uL (1.20-3.40) L 06/24/20 18:00 Monocytes # 0.6 thou/uL (0.11-0.59) H 06/24/20 18:00 Eosinophils # 0.0 thou/uL (0.0-0.7) 06/24/20 18:00 Basophils # 0.0 thou/uL (0.0-0.2) 06/24/20 18:00 Sodium 136 mmol/L (136-145) 06/24/20 18:00 Potassium 4.9 mmol/L (3.5-5.1) 06/24/20 18:00 Chloride 101 mmol/L (98-107) 06/24/20 18:00 Carbon Dioxide 26 mmol/L (23-31) 06/24/20 18:00 Anion Gap 14 mmol/L (10-20) 06/24/20 18:00 BUN 19 mg/dL (9.8-20.1) 06/24/20 18:00 Creatinine 0.66 mg/dL (0.6-1.1) 06/24/20 18:00 Estimated GFR (MDRD) 86 06/24/20 18:00 Glucose 111 mg/dL (83-110) H 06/24/20 18:00 Calcium 8.6 mg/dL (7.8-10.44) 06/24/20 18:00 Magnesium 1.8 mg/dL (1.6-2.6) 06/24/20 18:00 Total Bilirubin 0.5 mg/dL (0.2-1.2) 06/24/20 18:00 AST 27 U/L (5-34) 06/24/20 18:00 ALT 17 U/L (8-55) 06/24/20 18:00 Alkaline Phosphatase 44 U/L (40-110) 06/24/20 18:00 Troponin I 0.016 ng/mL (< 0.028) 06/24/20 18:00 Serum Total Protein 6.8 g/dL (5.8-8.1) 06/24/20 18:00 Albumin 3.9 g/dL (3.4-4.8) 06/24/20 18:00 Globulin 2.9 g/dL (2.4-3.5) 06/24/20 18:00 Albumin/Globulin Ratio 1.3 g/dL (1.2-2.2) 06/24/20 18:00 Urine Color Light-Yellow (Yellow) 06/24/20 19:51 Urine Clarity Turbid (Clear) A 06/24/20 19:51 Urine pH 7.5 (5.0-9.0) 06/24/20 19:51 Ur Specific [place] 1.017 (1.002-1.036) 06/24/20 19:51 Urine Protein Negative mg/dL (Neg-Trace) 06/24/20 19:51 Urine Glucose (UA) Normal mg/dL (Negative) 06/24/20 19:51 Urine Ketones Trace mg/dL (Negative) A 06/24/20 19:51 Urine Blood Negative (Negative) 06/24/20 19:51 Urine Nitrite Negative (Negative) 06/24/20 19:51 Urine Bilirubin Negative (Negative) 06/24/20 19:51 Urine Urobilinogen Normal mg/dL (Less than 2) 06/24/20 19:51 Ur Leukocyte Esterase Negative Karishma/uL (Negative) 06/24/20 19:51 Hospitalist H&P A/P (1) Vertigo Code(s): R42 - DIZZINESS AND GIDDINESS Status: Acute (2) Atrial fibrillation Code(s): I48.91 - UNSPECIFIED ATRIAL FIBRILLATION Status: Acute Plan: # Vertigo - may be due to posterior CVA vs cardiac arrythmias , doubt meniere's disease given cardiac history - will obtain MRI brain to r/o CVA - place in tele to r/o arrhythmias -will consult cardiology for AICD interrogation if MRI negative for acute event - possibility of orthostatic symptoms considered -start gentle IVF # Hypothyrodiism - continue synthroid , obtain TSH # DVT prop - on Eliquis # Advance directive -discussed , wishes trial of full code # Dispo - possible 24-48 hr stay
[2020-06-24] MEDS ORDERED: Bisacodyl 5 MG TAB PO PRN (21:47)
[2020-06-24] MEDS ORDERED: Acetaminophen 325 MG TAB PO PRN (21:47)
[2020-06-24] MEDS ORDERED: Ondansetron PF 4 MG/2 ML Vial IVP PRN (21:47)
[2020-06-24] MEDS ORDERED: Sodium Chloride 0.9% 1,000 ML IV SCH (22:00)
[2020-06-25 04:30] LABS: #Eosinphils 0.1 thou/uL (0.0-0.7); #Lymphocytes 1.4 thou/uL (1.20-3.40); #Monocytes 0.9 thou/uL (0.11-0.59); #Neutrophils 4.3 thou/uL (1.40-6.50); %Basophils 0.4 % (0.0-1.0); %Eosinophils 1.1 % (0.0-10.0); %Lymphocytes 20.4 % (21.0-51.0); %Monocytes 13.5 % (0.0-10.0); %Neutrophils 64.6 % (42.0-75.0); Hemoglobin 12.8 g/dL (12.0-16.0); Mean Corpuscular HGB CONC 32.7 g/dL (32.0-36.0); Mean Corpuscular Hemoglobin 32.1 pg (27.0-31.0); Mean Corpuscular Volume 98.1 fL (78.0-98.0); Mean Platelet Volume 9.4 fL (7.4-10.4); Platelet Count 126 thou/uL (130-400); RBC Distribution Width 12.2 % (11.5-14.5); White Blood Cell (WBC) Count 6.7 thou/uL (4.8-10.8)
[2020-06-25 04:53] LABS: Anion Gap 10 mmol/L (10-20); BUN (Urea Nitrogen) 23 mg/dL (9.8-20.1); Calc. Creatinine Clearance 0 mL/min (70-130); Calcium 8.4 mg/dL (7.8-10.44); Carbon Dioxide 27 mmol/L (23-31); Cardiac Risk 2.8 (Less than 4.5); Chloride 106 mmol/L (98-107); Cholesterol 123 mg/dl (< 200 Desired); Glucose 135 mg/dL (83-110); HDL Cholesterol 44 mg/dL (>60 Neg Risk); LDL Cholesterol, Calculated 71 mg/dL; Potassium 4.2 mmol/L (3.5-5.1); Sodium 139 mmol/L (136-145); Triglycerides 41 mg/dL (Less than 150)
[2020-06-25] MEDS ORDERED: Apixaban 2.5 MG TAB PO SCH (09:00)
[2020-06-25] MEDS ORDERED: Aspirin 325 mg Enteric Coated Tablet PO SCH (09:00)
[2020-06-25] MEDS ORDERED: Famotidine 20 MG TAB PO SCH (09:00)
[2020-06-25] MEDS ORDERED: Aspirin 325 MG TAB ONE (10:31)
[2020-06-25 12:54] LABS: Thyroid Stimulating Hormone 2.4899 uIU/mL (0.35-4.94)
--- NOTE | 2020-06-25 13:04 | CT ---
CT BRAIN WITHOUT CONTRAST: HISTORY:Worsening dizziness COMPARISON:Previous day FINDINGS: Cortical atrophy is again seen. There are foci of decreased attenuation in the periventricular white matter, consistent with chronic small vessel ischemic disease. This remains stable. Old lacunar infarctions in the basal ganglia are again seen. No evidence of acute infarct, hemorrhage, midline shift or abnormal extra-axial fluid collections is seen. The ventricular size is appropriate and the basilar cisterns are patent. The bony calvarium is intact. The visualized paranasal sinuses and mastoid air cells are well aerated. Metallic density in the righ t anterior globe is again noted. IMPRESSION: No CT evidence of acute intracranial process.
--- NOTE | 2020-06-25 14:17 | PDOC.DS.DS ---
Provider Date of Admission: 06/24/20 20:53 Date of Discharge: 06/25/20 Admitting Provider: Kinjal Graff MD Primary Care Physician: Michele Sandoval MD Course Hospital Course: Ms. Howe is an 84 year-old female with a PMHx of atrial-fibrillation on Eliquis, s/p AICD, who presented to the emergency room on 06/24/2020 for acute onset of dizziness. Patient reports that she was at home when she suddenly felt as though the room was spinning around her. She also had intense nausea and slight vomiting. The patient and her family who is a physician, attempted an Eply Maneuvar, with no improvement in her symptoms. Since her dizziness did not resolve, she presented to the ER. In the ER initial vital signs were 165/89, 92, 20, 98.3, 95% on RA. CT of the brain showed no actue abnormalities, but did show a metal object stable from prior in the patient's globe. Troponin was 0.016, Mg 1.8, BUn/Cr 19/0.66. Na 136, K 4.9. H/H 14.6/43.7. WBC 7.4. Patient was neurologically intact aside from her dizziness. Her cerebellar movements (FTN and HTS) were normal bilaterally. Since patient was unable to undergo MRI due to the metallic object in her eye, a repeat head CT was done the following day which showed no evidence of ischemia. Patient was given zofran, meclizine and had complete resolution of her symptoms. Patient's AICD was interrogated to see if she had any abnormal heart rhythms as a cause of her dizziness, and she had no events during the time of her symptoms. She did however have 2 non-sustained VT events most recent on 06/23 and an atrial arrhythmia lasting 1 minute and 15 seconds in duration on June 22. Patient was asymptomatic at those times. Recommend patient follow up with her hot plate press operator as an outpatient, and also follow with her primary care provider for further evaluation of her vertigo. Case was discussed with attending physician, Dr. Norton who is in agreement with plan above for discharge home with return precautions. Pertinent Studies: CT OF THE BRAIN WITHOUT CONTRAST: 06/24/20 INDICATIONS: 84-year-old female with vertigo and altered mental status. Dizziness, nausea and vomiting since this morning. COMPARISON: Prior exam dated 10/07/19. FINDINGS: There is moderate chronic small vessel ischemic change. There is small remote lacunar infarcts involving the caudate heads as well as the right globus pallidus. Septum pellucidum and third ventricle are midline. Mastoid air cells and paranasal sinuses are clear. There is metallic density in the region of the anterior right globe. The paranasal sinuses are clear. IMPRESSION: 1. No acute intracranial ab normality. 2. Stable chronic ischemic changes as above. 3. Stable metallic density within the anterior right globe. Dictated By: JOSSELIN ARANGO Signed By: JOSSELIN ARANGO Electronically signed: 06/24/2020 6:54:[address] BRAIN WITHOUT CONTRAST: HISTORY:Worsening dizziness COMPARISON:Previous day FINDINGS: Cortical atrophy is again seen. There are foci of decreased attenuation in the periventricular white matter, consistent with chronic small vessel ischemic disease. This remains stable. Old lacunar infarctions in the basal ganglia are again seen. No evidence of acute infarct, hemorrhage, midline shift or abnormal extra-axial fluid collections is seen. The ventricular size is appropriate and the basilar cisterns are patent. The bony calvarium is intact. The visualized paranasal sinuses and mastoid air cells are well aerated. Metallic density in the right anterior globe is again noted. IMPRESSION: No CT evidence of acute intracranial process. Resuscitation Status: 06/24/20 21:47 Resuscitation Status Routine Resuscitation Status: FULL: Full Resuscitation Discussed with: pt Lab Results: 06/25/20 04:16 06/25/20 04:16 Abnormal Lab Results - Last 48 hrs 06/24/20 18:00: MCV 100.0 H, MCH 33.4 H, Plt Count 117 L, Neutrophils % 81.4 H, Lymphocytes % 10.5 L, Lymphocytes # 0.8 L, Monocytes # 0.6 H 06/24/20 19:51: Urine Clarity Turbid A, Urine Ketones Trace A 06/25/20 04:16: BUN 23 H 06/25/20 04:16: RBC 4.00 L, MCV 98.1 H, MCH 32.1 H, Plt Count 126 L, Lymphocytes % 20.4 L, Monocytes % 13.5 H, Monocytes # 0.9 H Laboratory Tests 0206/24/20 06/24/20 18:00 18:00 18:00 WBC 7.4 RBC 4.37 Hgb 14.6 Hct 43.7 MCV 100.0 H MCH 33.4 H MCHC 33.4 RDW 12.3 Plt Count 117 L MPV 9.2 Neutrophils % 81.4 H Lymphocytes % 10.5 L Monocytes % 7.5 Eosinophils % 0.3 Basophils % 0.3 Neutrophils # 6.0 Lymphocytes # 0.8 L Monocytes # 0.6 H Eosinophils # 0.0 Basophils # 0.0 Sodium 136 Potassium 4.9 Chloride 101 Carbon Dioxide 26 Anion Gap 14 BUN 19 Creatinine 0.66 Estimated GFR (MDRD) 86 Glucose 111 H Calcium 8.6 Magnesium 1.8 Total Bilirubin 0.5 AST 27 ALT 17 Alkaline Phosphatase 44 Troponin I 0.016 Serum Total Protein 6.8 Albumin 3.9 Globulin 2.9 Albumin/Globulin Ratio 1.3 Triglycerides Cholesterol LDL Cholesterol, Calc HDL Cholesterol Heart Disease Risk Ratio Vitamin B12 Folate TSH 3rd Generation Urine Color Urine Clarity Urine pH Ur Specific [place] Urine Protein Urine Glucose (UA) Urine Ketones Urine Blood Urine Nitrite Urine Bilirubin Urine Urobilinogen Ur Leukocyte Esterase 06/24/20 06/25/20 06/25/20 19:51 04:16 04:16 WBC 6.7 RBC 4.00 L Hgb 12.8 Hct 39.2 MCV 98.1 H MCH 32.1 H MCHC 32.7 RDW 12.2 Plt Count 126 L MPV 9.4 Neutrophils % 64.6 Lymphocytes % 20.4 L Monocytes % 13.5 H Eosinophils % 1.1 Basophils % 0.4 Neutrophils # 4.3 Lymphocytes # 1.4 Monocytes # 0.9 H Eosinophils # 0.1 Basophils # 0.0 Sodium 139 Potassium 4.2 Chloride 106 Carbon Dioxide 27 Anion Gap 10 BUN 23 H Creatinine 0.65 Estimated GFR (MDRD) 87 Glucose 135 H Calcium 8.4 Magnesium Total Bilirubin AST ALT Alkaline Phosphatase Troponin I Serum Total Protein Albumin Globulin Albumin/Globulin Ratio Triglycerides 41 Cholesterol 123 LDL Cholesterol, Calc 71 HDL Cholesterol 44 Heart Disease Risk Ratio 2.8 Vitamin B12 Folate TSH 3rd Generation Urine Color Light-Yellow Urine Clarity Turbid A Urine pH 7.5 Ur Specific [place] 1.017 Urine Protein Negative Urine Glucose (UA) Normal Urine Ketones Trace A Urine Blood Negative Urine Nitrite Negative Urine Bilirubin Negative Urine Urobilinogen Normal Ur Leukocyte Esterase Negative 06/25/20 06/25/20 06/25/20 11:49 11:49 11:49 WBC RBC Hgb Hct MCV MCH MCHC RDW Plt Count MPV Neutrophils % Lymphocytes % Monocytes % Eosinophils % Basophils % Neutrophils # Lymphocytes # Monocytes # Eosinophils # Basophils # Sodium Potassium Chloride Carbon Dioxide Anion Gap BUN Creatinine Estimated GFR (MDRD) Glucose Calcium Magnesium 2.0 Total Bilirubin AST ALT Alkaline Phosphatase Troponin I Serum Total Protein Albumin Globulin Albumin/Globulin Ratio Triglycerides Cholesterol LDL Cholesterol, Calc HDL Cholesterol Heart Disease Risk Ratio Vitamin B12 740 Folate 14.60 TSH 3rd Generation 2.4899 Urine Color Urine Clarity Urine pH Ur Specific [place] Urine Protein Urine Glucose (UA) Urine Ketones Urine Blood Urine Nitrite Urine Bilirubin Urine Urobilinogen Ur Leukocyte Esterase Vitals: 133/84, 98, 16, 98.1, 99% on RA Physical Exam: The patient was seen and examined on the day of discharge. NAD, AOx3 Normocephalic, atraumatic Neck supple, no JVD, no lymphadenopathy RRR, no murmurs, rubs, or gallops Lungs CTAB, no wheezes, no dyspnea or tachypnea Abdomen soft, non-tender with normoactive bowel sounds Skin warm with no rashes, normal turgor Extremities with no edema and intact peripheral pulses Normal tone and muscle strength No focal deficits, no weakness, FTN, HTS intact bilaterally, gait stable Problem Plan of Treatment: Benign Positional Paroxysmal Vertigo CT brain negative x2, symptoms have completey resolved Neurolgoically intact, normal cerebellar function tests AICD interrogated with no arrythmias during dizzy events Improved with meclizine, zofran Follow up with PCP in 1 week Atrial fibrillation Continue home Eliquis. AICD interrogated, incidental non-sustained VT on June 22. 1 minutes 15 second run of atrial rhythm on June 23 No chest pain, syncope. EKG shows paced rhythm. No events on telemetry monitoring. Troponin normal. Follow up with cardiology as an outpatient. Case discussed with attending physician, Dr. Norton who is in agreement with assessment and plan for discharge home as above. Plan Home Medications: Medication Instructions Recorded Confirmed Type Ezetimibe [Zetia] 1 tab PO HS 11/09/14 09/25/19 History Glucosam/Chondr-Msm1/D3/C/Jarocho 2 tab PO DAILY 11/09/14 09/25/19 History [Glucosamine Chondroitin Complex] Restasis [Restasis Ophth Drops] 2 drop EA EYE BID 11/09/14 09/25/19 History Simvastatin [Zocor] 40 mg PO HS 11/09/14 09/25/19 History Ascorbic Acid [Vitamin C] 500 mg PO DAILY 01/24/15 09/25/19 History Multivitamin [Multivitamins] 1 cap PO DAILY 01/24/15 09/25/19 History Vitamin E 1 tab PO DAILY 01/24/15 09/25/19 History Aspirin [Ecotrin Low Strength] 81 mg PO DAILY 07/16/17 09/25/19 History Melatonin 5 mg PO HS PRN 08/23/19 09/25/19 History Niacin [Niacor] 1 tab PO DAILY 08/23/19 09/25/19 History Thyroid,Pork [[place] Thyroid] 1 tab PO QAM 08/23/19 09/25/19 History Apixaban [Eliquis] 2.5 mg PO BID 09/21/19 09/25/19 History Biotin 1 mg PO DAILY 09/21/19 09/25/19 History Calcium Carb,Gluc/Mag Ox,Gluc 1 tablet PO DAILY 09/21/19 09/25/19 History [Calcium Magnesium Caplet] Krill/Om3/DHA/EPA/Om6/Lip/Astx 1 cap PO DAILY 09/21/19 09/25/19 History [Krill Oil 1,000 mg Softgel] Ubidecarenone [Co Q-10] 300 mg PO DAILY 09/21/19 09/25/19 History Vitamin B Complex 1 cap PO DAILY 09/21/19 09/25/19 History pyridOXINE [Vitamin B 6] 50 mg PO DAILY 09/21/19 09/25/19 History Acetaminophen [Tylenol Regular 650 mg PO Q4H PRN tab 09/24/19 09/25/19 Rx Strength] Cephalexin [Keflex] 500 mg PO Q8HR #15 cap 09/24/19 09/25/19 Rx Metoprolol Succinate [Toprol XL] 25 mg PO DAILY #30 tab 09/24/19 09/25/19 Rx Midodrine HCl 2.5 mg PO TID PRN #45 tablet 09/24/19 09/25/19 Rx Flecainide [Tambocor] 100 mg PO Q12HR #0 tab 09/28/19 Rx Allergies: cranberry Allergy (Verified 09/22/19 15:59) Adhesives Allergy (Uncoded 09/21/19 11:30) Discharge Instructions:: You were admitted to the hospital for dizziness. You underwent a CT brain which was normal. You were kept overnight for monitoring and a repeat head CT was done which was also negative for stroke. Your electrolytes and lab values were all within a normal range. Your symptoms were felt to be caused by vertigo, or dizziness caused by your inner ear. You were given anti-nausea medications and a medication called meclizine. Your symptoms completely resolved and you were felt to be medically stable to be discharged home. Please follow up with your primary care doctor in one week. Your pacemaker was looked at to see if you had any abnormal heart rhythms during your episodes of dizziness. You had a normal heart rate during these episodes. You should still follow up with your hot plate press operator for regular monitoring of your pacemaker. Return to the emergency room if you develop any new concerning, or worsening symptoms. Referrals: Michele Sandoval MD [Primary Care Provider] - 7 Days (PLEASE CALL AND SCHEDULE A FOLLOW UP ) Disposition: HOME
[2020-06-25] MEDS ORDERED: Rosuvastatin 20 MG TAB PO SCH (21:00)
== END 2020-06-25 14:04 | disposition home or self-care (01) ==
LOC: ERS 17:26 → ERHOLD 20:53
PROVIDERS: ADMIT Internal Medicine; ATTEND Internal Medicine
DX: H81.10 Benign paroxysmal vertigo, unspecified ear (principal); I48.20 Chronic atrial fibrillation, unspecified; E03.9 Hypothyroidism, unspecified; E78.5 Hyperlipidemia, unspecified; E78.00 Pure hypercholesterolemia, unspecified; Z87.891 Personal history of nicotine dependence; Z79.01 Long term (current) use of anticoagulants; Z79.82 Long term (current) use of aspirin; Z79.899 Other long term (current) drug therapy; Z91.018 Allergy to other foods; Z91.048 Other nonmedicinal substance allergy status; Z95.810 Presence of automatic (implantable) cardiac defibrillator
CPT/HCPCS: 36415; 70450; 80048; 80053; 80061; 81003; 82607; 82746; 83735; 84443; 84484; 85025; 87086; 93005; 96374; 96375; G0378; J2060; J2405

== ENCOUNTER 2020-12-24 11:43 | Observation (INO) | payer MEDICARE, OTHER ==
[2020-12-24 12:26] LABS: Hemoglobin 12.9 g/dL (12.0-16.0); Mean Corpuscular HGB CONC 33.3 g/dL (32.0-36.0); Mean Corpuscular Hemoglobin 32.6 pg (27.0-31.0); Mean Platelet Volume 9.1 fL (7.4-10.4); Platelet Count 113 thou/uL (130-400); RBC Distribution Width 12.2 % (11.5-14.5); Red Blood Cell (RBC) Count 3.95 mill/uL (4.20-5.40); White Blood Cell (WBC) Count 5.8 thou/uL (4.8-10.8)
[2020-12-24 12:33] LABS: #Eosinphils 0.1 thou/uL (0.0-0.7); #Monocytes 0.8 thou/uL (0.11-0.59); #Neutrophils 3.9 thou/uL (1.40-6.50); %Basophils 0.3 % (0.0-1.0); %Eosinophils 1.3 % (0.0-10.0); %Lymphocytes 16.8 % (21.0-51.0); %Monocytes 13.6 % (0.0-10.0)
[2020-12-24 12:44] LABS: Platelet Morphology Comment Appears Decreased; RBC Morphology Normal
[2020-12-24 12:47] LABS: ALT (SGPT) 13 U/L (8-55); AST (SGOT) 22 U/L (5-34); Albumin 3.7 g/dL (3.4-4.8); Alkaline Phosphatase 39 U/L (40-110); Anion Gap 13 mmol/L (10-20); BUN (Urea Nitrogen) 20 mg/dL (9.8-20.1); Bilirubin, Total 0.6 mg/dL (0.2-1.2); CK (CPK) 80 U/L (29-168); Calc. Creatinine Clearance 0 mL/min (70-130); Calcium 9.3 mg/dL (7.8-10.44); Carbon Dioxide 27 mmol/L (23-31); Chloride 102 mmol/L (98-107); Globulin 2.7 g/dL (2.4-3.5); Glucose 116 mg/dL (83-110); Potassium 3.8 mmol/L (3.5-5.1); Protein, Total 6.4 g/dL (5.8-8.1); Sodium 138 mmol/L (136-145)
[2020-12-24 13:20] LABS: SARS-CoV-2 NAA Rapid Test Not Detected (NotDetected)
[2020-12-24] MEDS ORDERED: Digoxin 0.25 MG TAB ONE (14:50)
[2020-12-24] MEDS ORDERED: Metoprolol Tartrate 25 MG TAB ONE ×2 (14:50→14:54)
[2020-12-24] MEDS ORDERED: Bacitracin 1 PK ONE (14:54)
[2020-12-24 16:11] LABS: INR-International Normal Ratio 1.1; PTT 31.1 sec (22.9-36.1); Prothrombin Time 14.1 sec (12.0-14.7)
[2020-12-24] MEDS ORDERED: Acetaminophen 325 MG TAB PO PRN (16:26)
[2020-12-24] MEDS ORDERED: Acetaminophen 650 MG Suppository PR PRN (16:26)
[2020-12-24] MEDS ORDERED: Ondansetron PF 4 MG/2 ML Vial IVP PRN (16:26)
[2020-12-24] MEDS ORDERED: Ondansetron ODT 4 MG TAB PO PRN (16:26)
[2020-12-24 17:22] LABS: Magnesium 1.8 mg/dL (1.6-2.6)
[2020-12-24] MEDS ORDERED: Magnesium 2 GM/50 ML 2 GM in Premix Bag 1 BAG IVPB SCH ×2 (18:00→22:30)
[2020-12-24] MEDS ORDERED: Atorvastatin Calcium 20 MG TAB PO SCH (21:00)
[2020-12-24] MEDS ORDERED: Melatonin 3 MG TAB PO SCH (22:30)
[2020-12-24] MEDS: Apixaban 2.5 MG TAB PO SCH (22:44)
[2020-12-25 00:27] VITALS: BMI 18.8
[2020-12-25 05:22] LABS: Anion Gap 9 mmol/L (10-20); BUN (Urea Nitrogen) 15 mg/dL (9.8-20.1); Calc. Creatinine Clearance 62 mL/min (70-130); Calcium 8.1 mg/dL (7.8-10.44); Carbon Dioxide 27 mmol/L (23-31); Chloride 105 mmol/L (98-107); Glucose 75 mg/dL (83-110); Magnesium 2.1 mg/dL (1.6-2.6); Potassium 3.9 mmol/L (3.5-5.1); Sodium 137 mmol/L (136-145)
[2020-12-25 05:28] LABS: Band 1 % (5-11); Hemoglobin 11.3 g/dL (12.0-16.0); Lymphocytes 29 % (21-51); MDiff Complete? YES; Mean Platelet Volume 9.3 fL (7.4-10.4); Monocytes 17 % (0-10); Neutrophil 50 % (42-75); Platelet Count 117 thou/uL (130-400); Platelet Morphology Comment Appears Decreased; RBC Distribution Width 12.3 % (11.5-14.5); RBC Morphology Normal; Reactive Lymphocytes 3 % (0-10); Red Blood Cell (RBC) Count 3.41 mill/uL (4.20-5.40); White Blood Cell (WBC) Count 5.1 thou/uL (4.8-10.8)
[2020-12-25] MEDS: Apixaban 2.5 MG TAB PO SCH (09:16)
[2020-12-25 12:16] VITALS: TEMP 97.8
[2020-12-26 19:46] VITALS: BP 113/71
== END 2020-12-25 16:06 | disposition home or self-care (01) ==
LOC: ERS 11:43 → ERHOLD 15:49 → 2SE 21:38
PROVIDERS: ADMIT Emergency Medicine; ATTEND Emergency Medicine
DX: R55 Syncope and collapse (principal); I95.1 Orthostatic hypotension; S01.01XA Laceration without foreign body of scalp, initial encounter; S81.812A Laceration without foreign body, left lower leg, initial encounter; S81.811A Laceration without foreign body, right lower leg, initial encounter; R42 Dizziness and giddiness; I48.91 Unspecified atrial fibrillation; I47.2 Ventricular tachycardia; I42.8 Other cardiomyopathies; I08.3 Combined rheumatic disorders of mitral, aortic and tricuspid valves; I31.3 Pericardial effusion (noninflammatory); I10 Essential (primary) hypertension; E78.5 Hyperlipidemia, unspecified; E03.9 Hypothyroidism, unspecified; Z20.822 Contact with and (suspected) exposure to COVID-19; Z96.89 Presence of other specified functional implants; Z87.891 Personal history of nicotine dependence; Z91.018 Allergy to other foods; Z91.048 Other nonmedicinal substance allergy status; Z79.01 Long term (current) use of anticoagulants; Z79.899 Other long term (current) drug therapy; Z95.810 Presence of automatic (implantable) cardiac defibrillator; W19.XXXA Unspecified fall, initial encounter; Y93.01 Activity, walking, marching and hiking
CPT/HCPCS: 0240U; 70450; 71045; 72125; 80048; 80162; 82550; 83735 ×2; 83880; 84484; 85025; 85610; 85730; 93005; 93306; 97116; 97139 ×3; 99285; 36415; 80053; 84443; 96374; G0378; J3475

== ENCOUNTER 2021-03-02 11:41 | Outpatient (CLI) | payer MEDICARE, OTHER ==
[2021-03-02 14:06] LABS: Hemoglobin 12.4 g/dL (12.0-15.5); Mean Corpuscular HGB CONC 32.5 g/dL (32.0-36.0); Mean Corpuscular Volume 95.5 fl (81.6-98.3); Platelet Count 120 10x3/uL (150-450); RBC Distribution Width 13.4 % (11.5-14.5); White Blood Cell (WBC) Count 4.9 10x3/uL (3.5-10.5)
[2021-03-02 14:37] LABS: Anion Gap 11 mmol/L (10-20); BUN (Urea Nitrogen) 21 mg/dL (9.8-20.1); Calc. Creatinine Clearance 0 mL/min (70-130); Calcium 9.5 mg/dL (7.8-10.44); Carbon Dioxide 29 mmol/L (23-31); Chloride 98 mmol/L (98-107); Glucose 81 mg/dL (83-110); Potassium 4.8 mmol/L (3.5-5.1); Sodium 133 mmol/L (136-145)
[2021-03-02 14:40] LABS: PTT 29.9 sec (22.0-33.0)
[2021-03-03 15:32] LABS: Ref Lab Test Ordered CYTOCH P450 2D6/2C19; Reference Lab Name LABCORP
[2021-03-03 16:48] LABS: SARS-CoV-2 PCR by NAA Not Detected (NotDetected)
== END 2021-03-02 11:42 | disposition home or self-care (01) ==
LOC: LABBT 11:41
PROVIDERS: ATTEND Internal Medicine Cardiovascular Disease
DX: Z01.818 Encounter for other preprocedural examination (principal); Z20.822 Contact with and (suspected) exposure to COVID-19
CPT/HCPCS: 80048; 85027; 85610; 85730; 86147; 86850; 86900; 86901; 86920; 93005; U0003; U0005; 93010

== ENCOUNTER 2021-03-02 11:45 | Inpatient (IN) | payer MEDICARE, OTHER ==
[2021-03-06 15:24] VITALS: BMI 19.3
[2021-03-07] MEDS ORDERED: Heparin 10,000 UNITS/ 10 ML VIAL ONE (06:34)
[2021-03-07] MEDS ORDERED: Fentanyl 100 MCG/2 ML VIAL ONE (07:11)
[2021-03-07] MEDS ORDERED: Phenylephrine 10 MG/ML VIAL ONE (07:11)
[2021-03-07] MEDS ORDERED: Dexamethasone 20 MG/5 ML VIAL ONE (07:33)
[2021-03-07] MEDS ORDERED: Lidocaine 1% PF 5 ML VIAL ONE (07:33)
[2021-03-07] MEDS ORDERED: PROPOFOL 200 MG/20 ML VIAL ONE (07:33)
[2021-03-07] MEDS ORDERED: Glycopyrrolate 0.2 MG/ML 5 ML SYRINGE ONE (07:33)
[2021-03-07] MEDS ORDERED: Rocuronium Bromide 10 MG/ML (10ML VIAL) ONE (07:33)
[2021-03-07] MEDS ORDERED: Ondansetron PF 4 MG/2 ML Vial ONE (07:33)
[2021-03-07] MEDS ORDERED: Protamine Sulfate 50 MG/5 ML VIAL ONE (09:00)
[2021-03-07] MEDS ORDERED: Iopamidol 370 76% 100 ML VIAL ONE (09:25)
[2021-03-07] MEDS ORDERED: Acetaminophen/Codeine 30-300mg Tablet PO PRN ×2 (15:30)
[2021-03-07] MEDS ORDERED: Acetaminophen 325 MG TAB PO PRN (15:31)
[2021-03-07] MEDS ORDERED: Ezetimibe 10 MG TAB PO SCH (21:00)
[2021-03-07] MEDS: Apixaban 2.5 MG TAB PO SCH (21:25)
[2021-03-08] MEDS ORDERED: GLUCOSAMINE PO SCH (09:00)
[2021-03-08] MEDS ORDERED: Calcium Carbonate 600 MG + Vit D TAB PO SCH (09:00)
[2021-03-08] MEDS ORDERED: Digoxin 0.25 MG TAB PO SCH (09:00)
[2021-03-08] MEDS ORDERED: Aspirin 81 mg Enteric Coated Tablet PO SCH (09:00)
[2021-03-08] MEDS ORDERED: BIOTIN 1 MG PO SCH (09:00)
[2021-03-08] MEDS ORDERED: Ascorbic Acid 500 mg Chewable Tablet PO SCH (09:00)
[2021-03-08] MEDS ORDERED: Fish Oil 1,000 MG CAP PO SCH (09:00)
[2021-03-08] MEDS ORDERED: CHONDROITIN COMPLEX PO SCH (09:00)
[2021-03-08] MEDS: Apixaban 2.5 MG TAB PO SCH (09:21)
[2021-03-08 11:45] VITALS: BP 135/61; TEMP 98.5
[2021-03-08] MEDS ORDERED: Silver Nitrate Application 1 EACH TOP SCH (14:30)
== END 2021-03-08 15:25 | disposition home or self-care (01) | DRG 274 ==
LOC: SURG A 03-07 06:05 → 2NO 03-07 15:54
PROVIDERS: ADMIT Internal Medicine Cardiovascular Disease; ATTEND Internal Medicine Cardiovascular Disease
PROC: 02L73DK Occlusion of Left Atrial Appendage with Intraluminal Device, Percutaneous Approach (ICD-10-PCS; principal; 2021-03-07)
PROC: B24BZZ4 Ultrasonography of Heart with Aorta, Transesophageal (ICD-10-PCS; 2021-03-07)
DX: I48.0 Paroxysmal atrial fibrillation (principal); I31.3 Pericardial effusion (noninflammatory); I50.32 Chronic diastolic (congestive) heart failure; I13.0 Hypertensive heart and chronic kidney disease with heart failure and stage 1 through stage 4 chronic kidney disease, or unspecified chronic kidney disease; I42.9 Cardiomyopathy, unspecified; Z00.6 Encounter for examination for normal comparison and control in clinical research program; E03.9 Hypothyroidism, unspecified; Z96.653 Presence of artificial knee joint, bilateral; Z98.42 Cataract extraction status, left eye; Z98.41 Cataract extraction status, right eye; Z98.890 Other specified postprocedural states; Z91.81 History of falling; Z95.810 Presence of automatic (implantable) cardiac defibrillator; G25.81 Restless legs syndrome; Z79.01 Long term (current) use of anticoagulants; I11.0 Hypertensive heart disease with heart failure; Z79.82 Long term (current) use of aspirin; Z79.890 Hormone replacement therapy; Z79.899 Other long term (current) drug therapy; Z87.891 Personal history of nicotine dependence; E78.5 Hyperlipidemia, unspecified; Z82.49 Family history of ischemic heart disease and other diseases of the circulatory system; Z83.3 Family history of diabetes mellitus; Z20.822 Contact with and (suspected) exposure to COVID-19; N18.2 Chronic kidney disease, stage 2 (mild)
CPT/HCPCS: 33340; 36430; 85347; 86850; 86900; 86901; 93306; 93312; C1759; J1100; J1644; J2370; J2405; J2704; J2720; J3010; Q9967

== ENCOUNTER 2021-04-26 10:53 | Outpatient (CLI) | payer MEDICARE, OTHER ==
[2021-04-26 12:24] LABS: Hemoglobin 12.7 g/dL (12.0-15.5); Mean Corpuscular HGB CONC 32.1 g/dL (32.0-36.0); Mean Corpuscular Hemoglobin 30.8 pg (27.0-33.0); Mean Corpuscular Volume 95.9 fl (81.6-98.3); Mean Platelet Volume 11.6 fl (7.4-10.4); Platelet Count 150 10x3/uL (150-450); RBC Distribution Width 13.6 % (11.5-14.5); Red Blood Cell (RBC) Count 4.13 10x6/uL (3.90-5.03); White Blood Cell (WBC) Count 4.2 10x3/uL (3.5-10.5)
[2021-04-26 12:44] LABS: PTT 29.6 sec (22.0-33.0); Prothrombin Time 11.3 sec (9.5-12.1)
[2021-04-26 13:06] LABS: Anion Gap 12 mmol/L (10-20); BUN (Urea Nitrogen) 20 mg/dL (9.8-20.1); Calc. Creatinine Clearance 0 mL/min (70-130); Calcium 9.2 mg/dL (7.8-10.44); Carbon Dioxide 29 mmol/L (23-31); Chloride 101 mmol/L (98-107); Glucose 91 mg/dL (83-110); Potassium 4.8 mmol/L (3.5-5.1); Sodium 137 mmol/L (136-145)
[2021-04-26 22:09] LABS: SARS-CoV-2 PCR by NAA Not Detected (NotDetected)
== END 2021-04-26 10:54 | disposition home or self-care (01) ==
LOC: LABBT 10:53
PROVIDERS: ATTEND Internal Medicine Cardiovascular Disease
DX: Z01.818 Encounter for other preprocedural examination (principal); I48.91 Unspecified atrial fibrillation; Z20.822 Contact with and (suspected) exposure to COVID-19
CPT/HCPCS: 80048; 85027; 85610; 85730; 93005; U0003; U0005; 93010

== ENCOUNTER 2021-04-30 06:04 | Day surgery (SDC) | payer MEDICARE, OTHER ==
[2021-04-27 11:35] VITALS: BMI 19.3
[2021-04-30] MEDS ORDERED: Lidocaine 1% PF 5 ML VIAL ONE (07:16)
[2021-04-30] MEDS ORDERED: PROPOFOL 20 ML ONE (07:16)
[2021-04-30] MEDS ORDERED: Sodium Chloride 0.9% 10 ML ONE (07:30)
== END 2021-04-30 09:01 | disposition home or self-care (01) ==
LOC: CCL 06:04
PROVIDERS: ATTEND Internal Medicine Cardiovascular Disease
PROC: B246ZZ4 Ultrasonography of Right and Left Heart, Transesophageal (ICD-10-PCS; principal; 2021-04-30)
PROC: B24BZZ4 Ultrasonography of Heart with Aorta, Transesophageal (ICD-10-PCS; 2021-04-30)
DX: I48.0 Paroxysmal atrial fibrillation (principal); I08.1 Rheumatic disorders of both mitral and tricuspid valves; I70.0 Atherosclerosis of aorta; I42.9 Cardiomyopathy, unspecified; E03.9 Hypothyroidism, unspecified; G25.81 Restless legs syndrome; M19.90 Unspecified osteoarthritis, unspecified site; N18.2 Chronic kidney disease, stage 2 (mild); I50.32 Chronic diastolic (congestive) heart failure; D63.1 Anemia in chronic kidney disease; E78.5 Hyperlipidemia, unspecified; Z87.891 Personal history of nicotine dependence; Z79.01 Long term (current) use of anticoagulants; Z79.82 Long term (current) use of aspirin; Z79.899 Other long term (current) drug therapy; Z91.018 Allergy to other foods; Z91.048 Other nonmedicinal substance allergy status; Z95.810 Presence of automatic (implantable) cardiac defibrillator; Z95.818 Presence of other cardiac implants and grafts
CPT/HCPCS: 93312; J2704

== ENCOUNTER 2022-04-10 07:50 | Outpatient (CLI) | payer MEDICARE, OTHER ==
[2022-04-10] MEDS ORDERED: Sodium Chloride 0.9% (PF) 10 ML VIAL ONE (08:45)
[2022-04-10] MEDS ORDERED: EPINEPHrine 1 MG/ML AMP ONE (08:45)
[2022-04-10] MEDS ORDERED: Iopamidol 300 61% 50 ML VIAL FS ONE (08:45)
[2022-04-10] MEDS ORDERED: Lidocaine 1% PF 5 ML VIAL ONE (08:45)
== END 2022-04-10 07:51 | disposition home or self-care (01) ==
LOC: RAD 07:50
PROVIDERS: ATTEND Orthopaedic Surgery
DX: M75.121 Complete rotator cuff tear or rupture of right shoulder, not specified as traumatic (principal); S42.031A Displaced fracture of lateral end of right clavicle, initial encounter for closed fracture; S42.131A Displaced fracture of coracoid process, right shoulder, initial encounter for closed fracture
CPT/HCPCS: 23350; J0171; Q9967

== ENCOUNTER 2022-05-29 09:28 | Outpatient (CLI) | payer MEDICARE, OTHER | END 2022-05-29 09:29 | disposition home or self-care (01) | LOC: RAD 09:28 | PROVIDERS: ATTEND Physician Assistant | DX: S32.02 Fracture of second lumbar vertebra (principal); I70.0 Atherosclerosis of aorta; M85.88 Other specified disorders of bone density and structure, other site; R29.890 Loss of height | CPT/HCPCS: 72100 ==

== ENCOUNTER 2022-06-11 09:42 | Outpatient (CLI) | payer MEDICARE, OTHER | END 2022-06-11 09:43 | disposition home or self-care (01) | LOC: CT 09:42 | PROVIDERS: ATTEND Surgery | DX: S22.021 Stable burst fracture of second thoracic vertebra (principal) | CPT/HCPCS: 72131 ==

== ENCOUNTER 2022-06-25 05:35 | Observation (INO) | payer MEDICARE, OTHER ==
[2022-06-25] MEDS ORDERED: Ketamine 50 MG/ML (10ML VIAL) ONE (06:39)
[2022-06-25] MEDS ORDERED: Fentanyl 250 MCG/5 ML VIAL ONE (06:39)
[2022-06-25] MEDS ORDERED: Propofol 1,000 MG/100 ML VIAL IV ONE (06:44)
[2022-06-25] MEDS ORDERED: Bupivacaine HCl 0.5%/Epinephrine 1:200,000/PF 30 ml Vial ONE (06:56)
[2022-06-25] MEDS ORDERED: Lidocaine 2% PF 5 ML VIAL ONE ×2 (06:56→06:59)
[2022-06-25] MEDS ORDERED: Iopamidol 0 ML FS ONE (06:56)
[2022-06-25] MEDS ORDERED: Lidocaine 1% (PF) 30 ML VIAL ONE (06:59)
[2022-06-25] MEDS ORDERED: Lidocaine 1% PF 5 ML VIAL ONE (07:43)
[2022-06-25] MEDS ORDERED: PROPOFOL 200 MG/20 ML VIAL ONE (07:43)
[2022-06-25] MEDS ORDERED: Esmolol 100 MG/10 ML VIAL ONE (07:43)
[2022-06-25] MEDS ORDERED: Lidocaine 1% MPF 2 ML VIAL ONE (07:49)
[2022-06-25 08:13] LABS: SARS-CoV-2 NAA Rapid Test Not Detected (NotDetected)
[2022-06-25] MEDS ORDERED: Acetaminophen 325 MG TAB PO PRN (09:12)
[2022-06-25] MEDS ORDERED: Ondansetron PF 4 MG/2 ML Vial IVP PRN (09:12)
[2022-06-25] MEDS ORDERED: Ketorolac Tromethamine 30 MG/ML VIAL ONE (09:21)
[2022-06-25] MEDS ORDERED: Artificial Tear Sol 15 ML BOT EA EYE PRN (09:52)
[2022-06-25] MEDS: Mexiletine HCl 150 MG CAP PO SCH ×2 (13:47→21:19)
[2022-06-25 15:49] VITALS: BMI 17.6
[2022-06-25] MEDS: Ibuprofen 200 MG TAB PO PRN ×2 (15:54→21:19)
[2022-06-25] MEDS: Acetaminophen 500 MG TAB PO PRN (17:30)
[2022-06-25] MEDS ORDERED: Melatonin 3 MG TAB PO SCH (21:00)
[2022-06-25] MEDS ORDERED: Baclofen 10 MG TAB PO SCH (21:00)
[2022-06-25] MEDS ORDERED: Senokot 8.6 MG TAB PO SCH (21:00)
[2022-06-25] MEDS ORDERED: Rosuvastatin 20 MG TAB PO SCH (21:00)
[2022-06-25] MEDS: Docusate 100 MG CAP PO SCH (21:18)
[2022-06-25 22:15] LABS: Hemoglobin 11.4 g/dL (12.0-16.0); Mean Corpuscular HGB CONC 33.2 g/dL (32.0-36.0); Mean Corpuscular Hemoglobin 32.6 pg (27.0-31.0); Mean Corpuscular Volume 98.2 fl (78.0-98.0); Mean Platelet Volume 8.5 fL (7.4-10.4); Platelet Count 119 10x3/uL (130-400); RBC Distribution Width 14.2 % (11.5-14.5); Red Blood Cell (RBC) Count 3.48 mill/uL (4.20-5.40); White Blood Cell (WBC) Count 5.4 10x3/uL (4.8-10.8)
[2022-06-25 22:32] LABS: ALT (SGPT) 10 U/L (8-55); AST (SGOT) 18 U/L (5-34); Albumin 3.1 g/dL (3.4-4.8); Alkaline Phosphatase 55 U/L (40-110); Anion Gap 8 mmol/L (10-20); BUN (Urea Nitrogen) 17 mg/dL (9.8-20.1); Bilirubin, Total 0.3 mg/dL (0.2-1.2); Calc. Creatinine Clearance 47 mL/min (70-130); Calcium 8.3 mg/dL (7.8-10.44); Carbon Dioxide 28 mmol/L (23-31); Chloride 104 mmol/L (98-107); Estimated GFR 85; Globulin 2.5 g/dL (2.4-3.5); Glucose 135 mg/dL (83-110); Magnesium 1.9 mg/dL (1.6-2.6); Potassium 4.8 mmol/L (3.5-5.1); Protein, Total 5.6 g/dL (5.8-8.1); Sodium 135 mmol/L (136-145)
[2022-06-25 22:39] LABS: Band 1 % (5-11); Lymphocytes 23 % (21-51); MDiff Complete? YES; Macrocytosis SLIGHT = 6-15 cells (100X) (0-5/hpf); Monocytes 11 % (0-10); Neutrophil 65 % (42-75); Ovalocytes SLIGHT = 2-5 cells (100X) (0-1/hpf); Platelet Morphology Comment Appears Decreased
[2022-06-26] MEDS: Ibuprofen 200 MG TAB PO PRN ×3 (05:15→16:58)
[2022-06-26] MEDS ORDERED: CO Q-10 CAPSULE 100 MG PO SCH (09:00)
[2022-06-26] MEDS ORDERED: Magnesium Oxide 400 MG TAB PO SCH (09:00)
[2022-06-26] MEDS ORDERED: Thyroid 60 MG TAB PO SCH (09:00)
[2022-06-26] MEDS ORDERED: Niacin 500 MG TAB PO SCH (09:00)
[2022-06-26] MEDS ORDERED: Aspirin 81 mg Enteric Coated Tablet PO SCH (09:00)
[2022-06-26] MEDS: Digoxin 0.125 MG TAB PO SCH ×2 (10:28→10:29)
[2022-06-26] MEDS: Polyethylene Glycol 3350 17 GM Packet PO SCH ×2 (10:28→10:32)
[2022-06-26] MEDS: Docusate 100 MG CAP PO SCH (10:30)
[2022-06-26] MEDS ORDERED: CONFIRM ALL DAY 1 DOSES ARE TIMED FOR DAY 1 FS SCH (10:45)
[2022-06-26] MEDS: methylPREDNISolone 4 mg Tablet PO SCH ×2 (11:41→16:58)
[2022-06-26] MEDS: Mexiletine HCl 150 MG CAP PO SCH ×2 (11:45→13:22)
[2022-06-26] MEDS: Acetaminophen 500 MG TAB PO PRN (14:38)
[2022-06-26 15:54] VITALS: BP 110/67; TEMP 97.3
[2022-06-27] MEDS ORDERED: methylPREDNISolone 4 mg Tablet PO SCH ×2 (08:00→21:00)
[2022-06-28] MEDS ORDERED: methylPREDNISolone 4 mg Tablet PO SCH (08:00)
[2022-06-29] MEDS ORDERED: methylPREDNISolone 4 mg Tablet PO SCH (08:00)
[2022-06-30] MEDS ORDERED: methylPREDNISolone 4 mg Tablet PO SCH (08:00)
[2022-07-01] MEDS ORDERED: methylPREDNISolone 4 mg Tablet PO SCH (08:00)
== END 2022-06-26 17:06 ==
LOC: SDC 05:35 → T4-B 15:25
PROVIDERS: ADMIT Specialist; ATTEND Specialist
PROC: XNU0356 Supplement Lumbar Vertebra with Mechanically Expandable (Paired) Synthetic Substitute, Percutaneous Approach, New Technology Group 6 (ICD-10-PCS; principal; 2022-06-25)
DX: M80.08XA Age-related osteoporosis with current pathological fracture, vertebra(e), initial encounter for fracture (principal); S32.020A Wedge compression fracture of second lumbar vertebra, initial encounter for closed fracture; E03.9 Hypothyroidism, unspecified; E78.00 Pure hypercholesterolemia, unspecified; I49.3 Ventricular premature depolarization; M19.90 Unspecified osteoarthritis, unspecified site; I48.0 Paroxysmal atrial fibrillation; I11.9 Hypertensive heart disease without heart failure; Z87.891 Personal history of nicotine dependence; Z79.890 Hormone replacement therapy; Z79.899 Other long term (current) drug therapy; Z91.018 Allergy to other foods; Z91.048 Other nonmedicinal substance allergy status; Z20.822 Contact with and (suspected) exposure to COVID-19; Z95.810 Presence of automatic (implantable) cardiac defibrillator; W19.XXXA Unspecified fall, initial encounter
CPT/HCPCS: 22514; 72100; 80053; 83735; 85025; U0002; 36415; C1713; J1885; J2001; J2704; J3010; J7509; Q9966

== ENCOUNTER 2022-08-13 11:30 | Outpatient (CLI) | payer MEDICARE, OTHER ==
[2022-08-13 12:34] LABS: Hemoglobin 12.6 g/dL (12.0-15.5); Mean Corpuscular HGB CONC 32.5 g/dL (32.0-36.0); Mean Corpuscular Hemoglobin 30.7 pg (27.0-33.0); Mean Corpuscular Volume 94.6 fl (81.6-98.3); Mean Platelet Volume 9.6 fl (7.4-10.4); Platelet Count 233 10x3/uL (150-450); RBC Distribution Width 13.7 % (11.5-14.5); White Blood Cell (WBC) Count 5.3 10x3/uL (3.5-10.5)
[2022-08-13 12:52] LABS: INR-International Normal Ratio 0.9; PTT 26.5 sec (22.0-33.0); Prothrombin Time 10.3 sec (9.5-12.1)
[2022-08-13 12:54] LABS: Anion Gap 14 mmol/L (10-20); BUN (Urea Nitrogen) 14 mg/dL (9.8-20.1); Calc. Creatinine Clearance 0 mL/min (70-130); Calcium 8.4 mg/dL (7.8-10.44); Carbon Dioxide 25 mmol/L (23-31); Chloride 100 mmol/L (98-107); Estimated GFR 86; Glucose 168 mg/dL (83-110); Potassium 4.3 mmol/L (3.5-5.1); Sodium 135 mmol/L (136-145)
== END 2022-08-13 11:31 | disposition home or self-care (01) ==
LOC: LABBT 11:30
PROVIDERS: ATTEND Internal Medicine Cardiovascular Disease
DX: Z01.812 Encounter for preprocedural laboratory examination (principal); I48.0 Paroxysmal atrial fibrillation
CPT/HCPCS: 80048; 85027; 85610; 85730

== ENCOUNTER 2022-08-16 10:04 | Day surgery (SDC) | payer MEDICARE, OTHER ==
[2022-08-14 12:54] VITALS: BMI 16.6
[2022-08-16] MEDS ORDERED: DOPamine 400 MG/D5W 250 ML 250 ML ONE (11:28)
[2022-08-16] MEDS ORDERED: Lidocaine 1% (PF) 30 ML VIAL ONE (11:28)
[2022-08-16] MEDS ORDERED: Heparin 10,000 UNITS/ 10 ML VIAL ONE (11:28)
[2022-08-16] MEDS ORDERED: FENTANYL 50 MCG/ML 1 ML VIAL ONE (11:45)
[2022-08-16] MEDS ORDERED: ePHEDrine Sulfate 50 MG/10 ML VIAL ONE (11:54)
[2022-08-16] MEDS ORDERED: PROPOFOL 200 MG/20 ML VIAL ONE (11:54)
== END 2022-08-16 16:26 | disposition home or self-care (01) ==
LOC: SDC 10:04
PROVIDERS: ATTEND Internal Medicine Cardiovascular Disease
PROC: 02583ZZ Destruction of Conduction Mechanism, Percutaneous Approach (ICD-10-PCS; principal; 2022-08-16)
PROC: 02K83ZZ Map Conduction Mechanism, Percutaneous Approach (ICD-10-PCS; 2022-08-16)
PROC: 4A023FZ Measurement of Cardiac Rhythm, Percutaneous Approach (ICD-10-PCS; 2022-08-16)
PROC: 4A0234Z Measurement of Cardiac Electrical Activity, Percutaneous Approach (ICD-10-PCS; 2022-08-16)
DX: I48.0 Paroxysmal atrial fibrillation (principal); I50.32 Chronic diastolic (congestive) heart failure; I42.8 Other cardiomyopathies; Z91.018 Allergy to other foods; Z91.048 Other nonmedicinal substance allergy status; Z95.810 Presence of automatic (implantable) cardiac defibrillator; Z95.818 Presence of other cardiac implants and grafts; Z79.890 Hormone replacement therapy; Z79.82 Long term (current) use of aspirin; Z79.899 Other long term (current) drug therapy
CPT/HCPCS: 93005; 93613; 93650; C1732; C1760; C1894; J1265; J1644; J2001; J3010

== ENCOUNTER 2022-10-01 07:20 | Outpatient (CLI) | payer MEDICARE, OTHER | END 2022-10-01 07:21 | disposition home or self-care (01) | LOC: MRI 07:20 | PROVIDERS: ATTEND Surgery | DX: M62.81 Muscle weakness (generalized) (principal); R29.6 Repeated falls; T82.9XXA Unspecified complication of cardiac and vascular prosthetic device, implant and graft, initial encounter; M47.816 Spondylosis without myelopathy or radiculopathy, lumbar region; M47.815 Spondylosis without myelopathy or radiculopathy, thoracolumbar region; K91.5 Postcholecystectomy syndrome | CPT/HCPCS: 71046; 72148 ==